=== PATIENT | male | born 1960 | race Caucasian/White ===

== ENCOUNTER 2022-05-10 18:30 | Emergency (ER) | payer BC, MEDICAID ==
[~2022-05-10] VITALS: Ht 175.3 cm; Wt 83.6 kg
[~2022-05-10 18:30] MED LIST: GLIP5TAB13 PO; OMEP20CA4 PO; SITA100T15 PO
[2022-05-10] MEDS ORDERED: morphine 4 MG/ML inj SYRINge IM ONE ×2 (19:05→22:55)
[2022-05-10] MEDS ORDERED: TETanus/Pertussis (Acell)/Diphther VAC/PF (Tdap-Adult) 0.5ml syringe IMVAC ONE (19:05)
[2022-05-10] MEDS ORDERED: LIDOcaine 1% W/epiNEPHrine 1:100,000 20ml vial SQ ONE (21:15)
[2022-05-10] MEDS ORDERED: LIDOcaine 1% w/EPI 1:100,000 30ml vial (MDV) SQ ONE (21:20)
[2022-05-10] MEDS ORDERED: HYDR-3972 PO (22:30)
[2022-05-10] MEDS ORDERED: HYDROcodone/acetaminophen 10/325mg tab PO ONE (22:55)
[2022-05-10 23:30] VITALS: BP 125/78
== END 2022-05-10 23:33 | disposition home or self-care (01) ==
LOC: ER 18:30
DX: S81.811A Laceration without foreign body, right lower leg, initial encounter (principal); S60.512A Abrasion of left hand, initial encounter; S60.511A Abrasion of right hand, initial encounter; E11.9 Type 2 diabetes mellitus without complications; Z87.81 Personal history of (healed) traumatic fracture; Z88.0 Allergy status to penicillin; Z79.899 Other long term (current) drug therapy; Z79.1 Long term (current) use of non-steroidal anti-inflammatories (NSAID); V49.9XXA Car occupant (driver) (passenger) injured in unspecified traffic accident, initial encounter; Y93.89 Activity, other specified; Y92.89 Other specified places as the place of occurrence of the external cause; Y99.8 Other external cause status
CPT/HCPCS: 12002; 73590; 73610; 73630; 96372; 99284; J2270; A6258; A6446; A6449

== ENCOUNTER 2025-04-23 11:38 | Inpatient (IN) | payer OTHER, MEDICAID ==
[~2025-04-23] VITALS: Ht 175.3 cm; Wt 77.5 kg
[~2025-04-23 11:38] MED LIST changes: -GLIP5TAB13 PO; +GLIP5TAB23 PO
[2025-04-23 13:02] LABS: MEAN PLATELET VOLUME 8.3 FL (7.4-10.4); RED CELL DISTRIBUTION WIDTH 15.8 % (11.5-14.5)
[2025-04-23 13:18] LABS: CREATININE 0.67 MG/DL (0.60-1.10); TOTAL CARBON DIOXIDE 28.6 MMOL/L (24-32); eCRCL 110 ML/MIN; eGFR > 90 ML/MIN
[2025-04-23 13:35] LABS: EOSINOPHILS % (MANUAL) 1.0 % (0-6); LYMPHOCYTES % (MANUAL) 2.0 % (21-51); NEUTROPHILS % (MANUAL) 78.0 % (42-75)
[2025-04-23 13:36] LABS: MONOCYTES % (MANUAL) 19.0 % (2-12); PLATELET ESTIMATE NORMAL
[2025-04-23] MEDS ORDERED: LOSA25TA41 PO (14:02)
[2025-04-23] MEDS ORDERED: SEMA0.258 (14:02)
[2025-04-23] MEDS ORDERED: PANT40TA54 PO (14:02)
[2025-04-23] MEDS ORDERED: BUPR-72 PO (14:02)
--- NOTE | 2025-04-23 14:54 | Physician Documentation ---
History of Present Illness ~ General Chief Complaint: Abnormal Lab(s) Stated Complaint: ABNORMAL LABS LIVER FAILURE Time Seen by MD: 14:28 Primary Medical Doctor: [facility] Mode of Arrival: POV History of Present Illness Initial Comments Is a 64-year-old male that presents to the emergency department for evaluation of abnormal labs that were performed at his doctor's office. Patient reports that in addition to abnormal labs he has experienced increased abdominal d istention upper right quadrant abdominal pain for the last several months. Patient denies any history of alcohol use, does report that he has a chronic methamphetamine user but is currently in rehabilitation and has been clean of methamphetamine for approximately 2 months. Reports that he has never used prescription drugs or any other illicit drugs but does currently use marijuana on occasion. Patient reports history of diabetes but reports that diabetes or currently controlled A1c was then within normal limits. Medication Reconciliation Allergies: Coded Allergies: Penicillins (Verified Allergy, Intermediate, RASH, 04/25/25) Scheduled Bupropion HCl (Bupropion HCl Sr), 1 TAB PO BID, (Reported) Glipizide (Glipizide), 1 TABLET PO BID, (Reported) Losartan Potassium (Losartan Potassium), 1 TAB PO DAILY, (Reported) Omeprazole (Prilosec), 1 CAP PO DAILY, (Reported) Pantoprazole Sodium (Pantoprazole Sodium), 1 TAB PO DAILY, (Reported) Sitagliptin Phosphate* (Januvia*), 1 TAB PO DAILY, (Reported) Miscellaneous Medications Semaglutide (Ozempic), (Reported) Unable to Obtain Medications (Unable to Obtain Medications), (Reported) Past Medical History Past Medical History: Diabetes, Extremity Fracture Past Surgical History: cancer surgery, other Alcohol Use: None Drug Use: none Lives In: Home Review of Systems ROS As stated above in the HPI, otherwise all systems are reviewed and negative. Physical Exam Physical Exam Vital Signs: Temperature: 98.5, Source: Oral, Heart Rate: 91, Respiratory Rate: 17, BP: 146/86, Pulse Oximetry: 96, Weight: 77.800 Oxygen Flow Rate: 0 Physical Exam VITALS: Reviewed and as above. GENERAL: Alert, no apparent distress but patient is tearful and reports that he has concerned about his health. HEENT: Normocephalic, atraumatic, PERRL, EOMI, dry mucosa, no erythema RESPIRATORY: Lungs clear, normal breath sounds, no respiratory distress. CHEST: No accessory muscle use, no retractions CV: Regular rate, rhythm, no edema, no murmur, No: JVD GI: Distended and firm in the upper right and left quadrants of the abdomen softer as you move into the lower quadrants, mild tenderness with palpation, abdominal distention noted, bowels sounds present, no rebound, guarding, or rigidity BACK: No CVA tenderness, or swelling MUSCULOSKELETAL No deformities, no edema SKIN: Warm and dry, no rash NEURO: Oriented x4, No motor or sensory deficit PSYCH: Normal mood and affect, no agitation Progress Results/Orders Results/Orders Orders - ZAKIA MERRITT [employer] OPERATOR Ultrasound Of Abdomen (04/23/25 14:40) Page Hospitalist (04/23/25 16:51) Completed Orders - ZAKIA MERRITT [employer] OPERATOR Ultrasound Of Abdomen (04/23/25 14:40) Vital Signs 04/23/25 04/23/25 04/23/25 04/23/25 12:10 13:54 14:04 15:03 Temp 98.5 Pulse 98 91 96 Resp 18 17 17 B/P (MAP) 159/85 146/86 (106) 130/79 (96) Pulse Ox 97 96 95 O2 Flow Rate 0 0 04/23/25 16:11 Pulse 93 Resp 20 B/P (MAP) 145/80 (101) Pulse Ox 94 O2 Flow Rate 0 Laboratory Tests Test 04/23/25 12:46 04/23/25 15:24 White Blood Count 10.5 Red Blood Count 3.94 L Hemoglobin 13.2 L Hematocrit 38.8 L Mean Corpuscular Volume 98.5 H Mean Corpuscular Hemoglobin 33.4 H Mean Corpuscular Hemoglobin Concent 33.9 Red Cell Distribution Width 15.8 H Platelet Count 158 Mean Platelet Volume 8.3 Neutrophils (%) (Auto) 74.2 Lymphocytes (%) (Auto) 4.8 L Monocytes (%) (Auto) 20.0 H Eosinophils (%) (Auto) 0.5 Basophils (%) (Auto) 0.5 Neutrophils # (Auto) 7.8 H Lymphocytes # (Auto) 0.5 L Monocytes # (Auto) 2.1 H Eosinophils # (Auto) 0.0 Basophils # (Auto) 0.0 CBC Comment Differential Total Cells Counted 100 Neutrophils % (Manual) 78.0 H Lymphocytes % (Manual) 2.0 L Monocytes % (Manual) 19.0 H Eosinophils % (Manual) 1.0 Platelet Estimate Normal Red Blood Cell Morphology Normal Basophilic Stippling Sodium Level 135 Potassium Level 3.9 Chloride Level 100 Carbon Dioxide Level 28.6 Anion Gap 6 L Blood Urea Nitrogen 14 Creatinine 0.67 Estimated GFR/1.73 m2 > 90 BUN/Creatinine Ratio 20.9 H Glucose Level 99 Calcium Level 9.2 Total Bilirubin 6.3 H Aspartate Amino Transf (AST/SGOT) 307 H Alanine Aminotransferase (ALT/SGPT) 86 H Alkaline Phosphatase 487 H Total Protein 6.3 L Albumin 2.4 L Globulin 3.9 Albumin/Globulin Ratio 0.6 L Amylase Level 26 Lipase 12 L Chemistry Comments Urine Specimen Description Urinal Urine Color [place] Urine Clarity Clear Urine pH 7.0 Urine Specific [place] 1.020 Urine Protein 30 H Urine Glucose (UA) 100 H Urine Ketones Trace H Urine Occult Blood Negative Urine Nitrite Negative Urine Bilirubin Moderate Urine Urobilinogen >=8.0 H Urine Leukocyte Esterase Negative Urine RBC None seen Urine WBC 0-4 Urine Squamous Epithelial Cells Few Urine Transitional Epithelial Cells Few Urine Bacteria None seen Urine Mucus Few Urine Culture Indicated Not ind Volume Urine Centrifuged 10 ml Urine Comment Urine Opiates Screen Negative Urine Methadone Screen Negative Urine Fentanyl Screen Negative Urine Barbiturates Screen Negative Urine Phencyclidine Screen Negative Urine Amphetamines Screen Negative Urine Benzodiazepines Screen Negative Urine Cocaine Screen Negative Urine Cannabinoids Screen Positive Drug Screen Comment Medical Decision Making Findings 64 y/o patient with RUQ abdominal pain, consistent with hepatic cioncerns. Abdominal exam without peritoneal signs. No evidence of acute abdomen at this time. Well appearing. Given RUQ imaging, patient has an obstruction of the portal vein in addition to a substantially enlarged liver.Hospitalist consulted and patient to be admitted. Less likely to represent acute pancreatitis (neg lipase), PUD (including gastric perforation), acute infectious processes (pneumonia, hepatitis, pyelonephritis), atypical appendicitis, vascular catastrophe, bowel obstruction or viscus perforation, or acute coronary syndrome. Presentation not consistent with other acute, emergent causes of abdominal pain at this time. Patient has been handed off to the hospitalist for admission. Departure Disposition: 09 ADMITTED INPATIENT Admission Level of Care: Med/Surg Impression: Primary Impression: Hepatomegaly Additional Impressions: Portal vein obstruction Ascites Pain Abnormal laboratory test result Cirrhosis of liver Condition: Stable Referrals: NO PRIMARY CARE PROVIDER (PCP) Education Educated: Patient Educated regarding: diagnosis, prognosis Signature Scribe Signature: A Attestation: Scribed for Zakia Merritt by WHIT Jeter . 04/25/25 20:01 ZAKIA MERRITT Apr 23, 2025 14:54
[2025-04-23 15:46] LABS: LEUKOCYTE ESTERASE ,URINE NEGATIVE (Neg); NITRITES, URINE NEGATIVE (Neg); OCCULT BLOOD,URINE NEGATIVE (Neg)
[2025-04-23 15:53] LABS: UA COLLECTION TYPE URINAL
[2025-04-23 15:55] LABS: SQUAMOUS EPITHELIAL CELL,UR FEW /LPF (FEW)
[2025-04-23 15:56] LABS: MUCUS STRANDS FEW /LPF (Neg)
--- NOTE | 2025-04-23 17:13 | RADIOLOGY REPORT ---
Procedure: US ULTRASOUND OF [facility] Study Date and Requested Time: 04/23/2025 03:45 PM History: abnormal labs, pain Comparison: None Technique: Multiple high resolution lang-scale images obtained of the right upper quadrant of the abdomen with color Doppler for evaluation of blood flow and vascularity as indicated. Findings: Liver measures 19 cm in length, with heterogeneous echotexture and micronodular contour. No evidence of focal hepatic lesions, intrahepatic or extrahepatic ductal dilatation. Common bile duct measures 0.4 cm in diameter. Unable to detect portal venous flow. Nonspecific gallbladder wall thickening and 0.9 cm. Otherwise, Gallbladder unremarkable with no evidence of gallstones, biliary sludge, or pericholecystic fluid. Sonographic lopez's sign not documented. Pancreas is obscured by bowel gas Right kidney measures 12.9 cm in length, with normal contours, echotexture, and cortical thickness. No evidence of hydronephrosis, calculi, cystic or solid renal lesions. Partially visualized inferior vena cava unremarkable. Small to moderate perihepatic free fluid. Impression: Cirrhotic appearing liver with small to moderate perihepatic free fluid Flow was not detected within the portal vein. Correlate for Possible portal vein thrombosis. Nonspecific Significant wall thickening of the Gallbladder which may be from the hepatic disease with primary gallbladder pathology not completely excluded. The gallbladder is otherwise unremarkable.
[2025-04-23] MEDS ORDERED: magnesium sulf-water 2g/50mL 50 ML IV PRN (17:40)
[2025-04-23] MEDS ORDERED: ondansetron/PF 4mg/2ml inj IV PRN (17:40)
[2025-04-23] MEDS ORDERED: magnesium hydroxide 30ml (MOM) UD suspension PO PRN (17:40)
[2025-04-23] MEDS ORDERED: potassium Cl 40MEQ/1/2NS 520ml 520 ML IV PRN (17:40)
[2025-04-23] MEDS ORDERED: potassium Cl 20 mEq SR tablet PO PRN ×2 (17:40)
[2025-04-23] MEDS ORDERED: metoclopramide 5 mg/ml inj IV PRN (17:40)
[2025-04-23] MEDS ORDERED: magnesium Cl slow-release 64mg tablet PO PRN (17:40)
[2025-04-23] MEDS ORDERED: magnesium sulf-water 4G/100mL 100 ML IV PRN (17:40)
[2025-04-23] MEDS ORDERED: mag hydrox/Alum hydrox/simeth 30ml oral suspension PO PRN (17:40)
[2025-04-23] MEDS ORDERED: dextrose 50%-water 50ml dispensing syringe IV PRN ×2 (17:55)
[2025-04-23] MEDS ORDERED: glucagon, human recombinant 1mg kit SUBCUT PRN (17:55)
[2025-04-23] MEDS ORDERED: DEXTROSE 15 GM of carb/4 tabs (each vial/BOTTLE has 4 tablets) PO PRN ×2 (17:55)
[2025-04-23] MEDS ORDERED: iohexol 300mg/ml 100ml inj. ONE (18:07)
--- NOTE | 2025-04-23 18:10 | HISTORY AND PHYSICAL-Residence ---
History & Physical Providers to CC Resident Creating Document: LAQUITAPREMPLACIDO ~ History of Present Illness Primary Medical Doctor: [facility] Reason for Admit\Complaint: Portal vein thrombosis History of Present Illness This is a 64-year-old male patient with a past medical history of hepatitis-C treated, cirrhosis, hypertension, type 2 diabetes mellitus, presented to the ER for painless jaundice for the last 3-4 days. Patient complains of abdominal distention, nausea, fullness and decreased oral intake for the last week associated with progressive jaundice, dark urine and loose stools. He denies abdominal pain, vomiting or altered mental status. Patient also complains of dry cough and intermittent left-sided chest pain with deep inspiration. No other symptoms reported. Allergies: Coded Allergies: Penicillins (Verified Allergy, Unknown, 04/23/25) Home Medications Home Medications Active Reported Ozempic (Semaglutide) 0.25 Mg/0.368 Ml Pen.injctr Losartan Potassium 25 Mg Tablet 1 Tab PO DAILY Prilosec (Omeprazole) 20 Mg Capsule.dr 1 Cap PO DAILY Glipizide 5 Mg Tablet 1 Tablet PO BID Januvia* (Sitagliptin Phosphate*) 100 Mg Tablet 1 Tab PO DAILY Past Medical History Past Medical History Hypertension Diabetes mellitus type 2 Hep C treated 15 years ago Past Surgical History Surgical History Comment Benign intracranial tumor removed 10 years ago Past Social History Smoking: Less than 1 pack/day (Patient smokes half pack daily) Alcohol Use: None Drug Use: None, Methamphetamine (Patient's sober for the last two months) Lives with: Other Lives In: Home ROS Constitutional: Reports: malaise, weakness Eyes: Reports: no symptoms reported ENT: Reports: no symptoms reported Respiratory: Reports: no symptoms reported Cardiovascular: Reports: chest pain Gastrointestinal: Reports: abdomen distended, nausea, poor appetite Genitourinary: Reports: no symptoms reported Male Genitalia: Reports: no symptoms reported Neurological: Reports: no symptoms reported Musculoskeletal: Reports: no symptoms reported Integumentary: Reports: no symptoms reported Allergic/Immunologic: Reports: no symptoms reported Hematologic/Lymphatic: Reports: no symptoms reported Endocrine: Reports: no symptoms reported Psychiatric: Reports: no symptoms reported Exam Vitals: Vital Signs Date Time Temp Pulse Resp B/P (MAP) Pulse Ox O2 Delivery O2 Flow Rate FiO2 04/23/25 17:47 95 18 143/82 (102) 100 0 04/23/25 12:10 98.5 General: General: Awake and Alert, no acute distress. HEENT: Conjunctiva pink, jaundice 2+/4+, Mucus Membranes moist. Neck: Supple without masses and tenderness. Resp: Unlabored. Lungs clear to auscultation bilaterally. Heart: Regular Rate and rhythm, normal S1 and S2 without murmur, rub or gallop. Abdomen: Mildly distended, normal bowel sounds, nontender, no guarding or rebound, liver palpable 2 cm below the right costal margin Extremities: No cyanosis,clubbing or edema. Skin: Warm and Dry. Diagnostic Data Last Recorded Lab Results: 04/23/25 1246 04/23/25 1246 Advance Care Planning Advanced Care plannin - 30 Minutes (Patient wants to be full code) Additional Plan Assessment 64-year-old male patient admitted for painless jaundice. 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 Flow was not detected within the portal vein. Correlate for Possible portal vein thrombosis. Common bile duct measures 0.4 cm in diameter. Nonspecific gallbladder wall thickening and 0.[address] abdomen with IV contrast Plan to start enoxaparin therapeutic dose after CT abdomen Ordered INR, hepatitis panel, alpha fetoprotein IV hydration with lactated ringer Ordered ESR, procalcitonin, VitB12, iron profile and occult blood Methamphetamine use disorder Patient has been sober for the last 2 months, currently living at [facility] Ordered drug screen Type 2 diabetes mellitus Ordered A1c Placed on hyper/hypoglycemia protocol Hypertension - well-controlled Continue home medication after med reconciliation Code Status: Full code DVT prophylaxis: Enoxaparin after CT abdomen Analgesia/sedation: Morphine Line/tube: PIV GI prophylaxis: Pantoprazole Nutrition: Regular diet Prognosis: Guarded Disposition: Admit to surgical floor. Start anticoagulation after CT abdomen. Date of Service: Apr 23, 2025 Billing Provider: ISIDRO EARL MD, LUCAS, RES Apr 23, 2025 18:10
[2025-04-23] MEDS: ringers solution, lacted 1,000 ML IV SCH (18:11)
--- NOTE | 2025-04-23 18:39 | RADIOLOGY REPORT ---
CHEST RADIOGRAPH Indication: Intermittent chest pain Technique: DI CHEST,TWO VIEWS COMPARISON: None FINDINGS: The cardiac silhouette is enlarged. The lungs demonstrate bilateral patchy airspace opacities. The pulmonary vasculature is prominent. Small bilateral pleural effusions. There is no pneumothorax. IMPRESSION: Cardiomegaly with pulmonary vascular congestion and bilateral patchy airspace opacities. Small bilateral pleural effusions
--- NOTE | 2025-04-23 18:45 | RADIOLOGY REPORT ---
Exam: CT CT ABDOMEN W/ IV CONTRAST History: EVALUATION OF PORTAL VEIN THROMBOSIS, NEED IV CONTRAST Comparison Study: US ULTRASOUND OF ABDOMEN on DOS: 04/23/25 TECHNIQUE: A digital tradeshow worker image was obtained. During the uneventful, intravenous administration of contrast material, multislice data acquisition was obtained through the abdomen and pelvis. The data set was subsequently reconstructed into axial images. Images reviewed on a wrist examination is an examination of axial and multiplanar reformations using a variety of window levels and settings. RADIATION DOSE: DLP 625.06 mGy.cm; CTDI vol 19.81 mGy. Findings: Lungs: Small bilateral pleural effusions, [id number]. Mild bilateral lower lobe atelectasis. Heart: No cardiomegaly or pericardial effusion. Liver: Cirrhotic liver morphology with perihepatic free fluid. Biliary ductal dilatation with complete portal venous thrombus (axial image 36). Gallbladder: Gallbladder wall thickening likely due to hepatic disease. Spleen: Unremarkable. Mild perisplenic free fluid. Pancreas: Unremarkable Adrenals: Unremarkable Kidneys: Unremarkable GI tract: Visualized portions are unremarkable Vasculature: Mild aortoiliac atherosclerosis. Gastrosplenic varices. Lymphadenopathy: Mildly prominent retroperitoneal and portal caval nodes. Peritoneum: Mild volume ascites. Musculoskeletal: Mild multilevel degenerative changes of the thoracolumbar spine. Soft tissues: Small fat containing periumbilical hernia. Mild anasarca Impression: 1. Cirrhotic liver morphology with biliary ductal dilatation and complete portal vein thrombosis, as seen on same-day abdominal ultrasound. 2. Sequela of portal hypertension. 3. Small bilateral pleural effusions. 4. Mildly prominent retroperitoneal and portal caval nodes, nonspecific but favored reactive.
[2025-04-23 19:13] LABS: INR 1.4 INR
[2025-04-23 19:38] LABS: HIV ANTIBODY 1&2 RAPID NON-REACTIVE (Neg)
[2025-04-23] MEDS: enoxaparin 80mg/0.8ml syringe SUBCUT SCH (20:00)
[2025-04-23] MEDS: docusate sod 100mg capsule PO SCH (20:00)
[2025-04-23] MEDS: K and/or MAG REPLACEMENT MC SCH (20:00)
[2025-04-23 20:23] LABS: URINE AMPHETAMINE SCREEN NEGATIVE (Neg); URINE BARBITUATE SCREEN NEGATIVE (Neg); URINE BENZODIAZEPINES SCREEN NEGATIVE (Neg); URINE CANNABINOID SCREEN POSITIVE (Neg); URINE COCAINE SCREEN NEGATIVE (Neg); URINE METHADONE SCREEN NEGATIVE (Neg); URINE OPIATE SCREEN NEGATIVE (Neg); URINE PHENCYCLIDINE SCREEN NEGATIVE (Neg)
[2025-04-23] MEDS: INSULIN LISPRO 100 UNIT/ML INSULN.PEN MULTI-DOSE SQ SCH (21:00)
[2025-04-23] MEDS: diazepam inj 5 MG/ML inj. IV PRN (21:55)
[2025-04-23 22:50] VITALS: BP 153/83; PULSE 107; RESP 16; TEMP 98.5; O2SAT 92
[2025-04-23 23:00] VITALS: RESP 16; O2SAT 92
[2025-04-24] MEDS ORDERED: morphine 4 MG/ML inj SYRINge IV PRN (00:10)
[2025-04-24] MEDS ORDERED: diazepam inj 5 MG/ML inj. IV ONE (02:00)
[2025-04-24 04:39] LABS: MEAN PLATELET VOLUME 8.0 FL (7.4-10.4); RED CELL DISTRIBUTION WIDTH 15.6 % (11.5-14.5)
[2025-04-24] MEDS: morphine 4 MG/ML inj SYRINge IV PRN (04:43)
[2025-04-24 04:56] LABS: % IRON SATURATION 22 % (11-46)
[2025-04-24 05:29] LABS: CREATININE 0.65 MG/DL (0.60-1.10); TOTAL CARBON DIOXIDE 27.7 MMOL/L (24-32); eCRCL 113 ML/MIN; eGFR > 90 ML/MIN
[2025-04-24 06:14] VITALS: BP 127/64; PULSE 102; RESP 20; TEMP 99.6; O2SAT 92
[2025-04-24] MEDS: HYDROmorphone inj. 0.5 MG/0.5 ML DISP.SYRIN IV PRN (07:32)
[2025-04-24 07:45] LABS: LYMPHOCYTES % (MANUAL) 4.0 % (21-51); MONOCYTES % (MANUAL) 16.0 % (2-12); NEUTROPHILS % (MANUAL) 80.0 % (42-75); PLATELET ESTIMATE NORMAL
[2025-04-24] MEDS ORDERED: enoxaparin 40mg/0.4ml syringe SUBCUT SCH (08:00)
[2025-04-24 08:50] VITALS: BP 141/78; PULSE 110; RESP 24; TEMP 98.8; O2SAT 92
[2025-04-24] MEDS: HYDROcodone/acetaminophen 5mg/325mg tablet PO PRN (10:52)
[2025-04-24] MEDS: pantoprazole 40mg Tablet.DR PO SCH (10:52)
--- NOTE | 2025-04-24 11:23 | PROGRESS NOTE- Residence ---
Progress Note - Resident Providers to CC Resident Creating Document: PREM COELHO RES ~ Antibiotic Timeout Antibiotic Ordered?: No Subjective Patient was seen and examined at the bedside. He complains of abdominal pain especially in the right upper quadrant, but denies nausea, vomiting, diarrhea or shortness for breath. Patient is tolerating oral diet. No other symptoms reported. Objective Vital Signs Date Time Temp Pulse Resp B/P (MAP) Pulse Ox O2 Delivery O2 Flow Rate FiO2 04/24/25 10:52 24 04/24/25 08:50 98.8 110 141/78 (99) 92 Nasal Cannula 2.0 Result Diagram: 04/24/2542604/24/25426 General: Awake and Alert, no acute distress. HEENT: Conjunctiva pink, jaundice 2+/4+, Mucus Membranes moist. Neck: Supple without masses and tenderness. Resp: Unlabored. Lungs clear to auscultation bilaterally. Heart: Regular Rate and rhythm, normal S1 and S2 without murmur, rub or gallop. Abdomen: distended, normal bowel sounds, mildly tender, no guarding or rebound, liver palpable 2 cm below the right costal margin Extremities: No cyanosis,clubbing or edema. Skin: Warm and Dry. Coagulation Studies Laboratory Tests Test 04/23/25 18:10 Prothrombin Time 14.0 SECONDS (9.0-12.0) H INR International Normalized Ratio 1.4 INR Coagulation Comments Plan Plan Assessment 64-year-old male patient admitted for painless jaundice. 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 Flow was not detected within the portal vein. Correlate for Possible portal vein thrombosis. Common bile duct measures 0.4 cm in diameter. Nonspecific gallbladder wall thickening and 0.[address] abdomen with IV contrast Plan to start enoxaparin therapeutic dose after CT abdomen Ordered INR, hepatitis panel, alpha fetoprotein IV hydration with lactated ringer Ordered ESR, procalcitonin, VitB12, iron profile and occult blood 04/24/2025 Ammonia < 10, ASL 268, ALT 75, alkaline phosphatase 444, bilirrubin 7.3, direct bilirrubin 4.8 Ferritin 2650, Iron 36, TIBC 162 HIV negative, pending hepatitis panel Pending alpha-fetoprotein and GGT Started on enoxaparin 1 mg/kg b.i.d. Started on Dilaudid 0.5mg for pain management Ordered therapeutic paracentesis CT abdomen: 1. Cirrhotic liver morphology with biliary ductal dilatation and complete portal vein thrombosis, as seen on same-day abdominal ultrasound. 2. Sequela of portal hypertension. 3. Small bilateral pleural effusions. 4. Mildly prominent retroperitoneal and portal caval nodes, nonspecific but favored reactive. Patient needs to be transferred for higher level of care Methamphetamine use disorder Patient has been sober for the last 2 months, currently living at [facility] UA screen neg for meth, positive for cannabinoids Type 2 diabetes mellitus A1c 7.5 Placed on hyper/hypoglycemia protocol Not started on insulin given poor oral intake Hypertension - well-controlled Continue losartan 25 mg daily Code Status: Full code DVT prophylaxis: Enoxaparin Analgesia/sedation: Morphine/Dilaudid Line/tube: PIV GI prophylaxis: Pantoprazole Nutrition: Carb controlled diet Prognosis: Guarded Disposition: Continue medical treatment. Patient needs to be transferred for higher level of care. Resident MD attestation The above note has been reviewed and supervised by a senior resident PGY2/PGY3 Patient was seen, examined and discussed with the attending physician Date of Service: Apr 24, 2025 Billing Provider: ISIDRO EARL MD, LUCAS, RES Apr 24, 2025 11:23
[2025-04-24 11:30] VITALS: BP 126/84; PULSE 103; RESP 19; TEMP 98.6; O2SAT 90
[2025-04-24 18:00] VITALS: BP 144/73; PULSE 105; RESP 24; TEMP 98.9; O2SAT 90
[2025-04-24 19:35] LABS: INR 1.8 INR
[2025-04-24 20:00] VITALS: RESP 24; O2SAT 90
[2025-04-24] MEDS: buPROPion SR 150mg tablet PO SCH (21:31)
[2025-04-24] MEDS: morphine ER 15mg tablet PO SCH (21:34)
[2025-04-24 22:00] VITALS: BP 129/73; PULSE 108; RESP 24; TEMP 99.3; O2SAT 90
[2025-04-25] VITALS (27 sets, daily range): BP systolic 18–148; BP diastolic 46–82; PULSE 14–115; RESP 8–28; TEMP 98–99; O2SAT 86–98
[2025-04-25 05:00] LABS: MEAN PLATELET VOLUME 7.8 FL (7.4-10.4); RED CELL DISTRIBUTION WIDTH 15.5 % (11.5-14.5)
[2025-04-25 05:12] LABS: CREATININE 1.69 MG/DL (0.60-1.10); TOTAL CARBON DIOXIDE 25.2 MMOL/L (24-32); eCRCL 44 ML/MIN; eGFR 41 ML/MIN
[2025-04-25] MEDS: normal saline 1000ml 1,000 ML IV SCH (06:40)
[2025-04-25 07:54] LABS: LYMPHOCYTES % (MANUAL) 2.0 % (21-51); MONOCYTES % (MANUAL) 16.0 % (2-12); NEUTROPHILS % (MANUAL) 82.0 % (42-75); PLATELET ESTIMATE NORMAL
[2025-04-25] MEDS ORDERED: piperacillin/tazo 4.5gm/100ml 100 ML IV SCH (08:00)
[2025-04-25] MEDS: normal saline 1000ml 1,000 ML IVB ONE (08:05)
[2025-04-25] MEDS: levoFLOXACIN-Levaquin 750MG/D5 150 ML IV SCH (10:25)
[2025-04-25] MEDS: LidoCAINE 2% Topical Jelly 11mL syringe (UROJET) TOP ONE (10:25)
[2025-04-25] MEDS: metroNIDAZOLE-Flagyl 750mg/NS 150 ML IV SCH (11:12)
[2025-04-25 11:31] LABS: AFP,SERUM, TUMOR MARKER 98307.0 ng/mL (0.0-8.4); HEP B CORE AB, TOT Positive (Negative); HEPATITIS C VIRUS ANTIBODY Reactive (Non Reactive)
--- NOTE | 2025-04-25 12:02 | RADIOLOGY REPORT ---
Indication: Worsening abdominal pain, elevated WBC, elevated lactic acid Technique: CT axial images of the abdomen and pelvis are obtained without contrast. Coronal and sagittal reformats were obtained. Radiation Dose Information: CTDI volume is 33.2 mGy. Dose-length product is 1765 mGy*cm Comparison: 04/23/2025 FINDINGS: There is limited interpretation of the abdomen and pelvis without administration of intravenous contrast. Moderate bilateral pleural effusions. Bibasilar pulmonary consolidation, atelectasis. Adrenal glands, pancreas unremarkable in shape. Splenomegaly.. Cirrhotic morphology liver. Heterogeneous appearance of the liver. Gallbladder hyperdensity. Numerous perisplenic, perigastric varices. Gastro renal shunt. Demonstrate no hydronephrosis. Contrast from a previous examination within the renal cortices. Stomach is partially distended. Small bowel loops are normal in caliber. Colonic diverticular disease. Moderate volume stool in the colon. Normal appendix. Abdominal aortic atherosclerotic disease.m Portacaval lymph node measuring 2.5 cm. Retroperitoneal lymph node measuring 2.0 cm. Bladder distended with contrast from prior examination. Small amount of ascites fluid. Mesenteric edema. Old left inferior pubic ramus fracture. [id number] bilateral sacroiliac degenerative joint disease. Moderate thoracolumbar degenerative disc disease. This is most pronounced at L5-S1. IMPRESSION: Limited evaluation without contrast. Cirrhotic morphology liver with sequela of portal hypertension including splenomegaly, gastric / splenic varices, gastro renal shunt. Diffusely heterogeneous appearance of the liver. Recommend multiphasic MRI abdomen correlation with alpha fetoprotein levels exclude any type of underlying neoplastic process. Portacaval, retroperitoneal lymphadenopathy which could be secondary to inflammatory, infectious, lymphoma neoplastic etiology. Bibasilar pulmonary consolidation/atelectasis. Moderate bilateral pleural effusions. Soft tissue edema and anasarca. Gallbladder hyperdensity which may represent vicarious excretion contrast from the previous examination. Small amount of ascites fluid. Colonic diverticular disease. Other findings as described.
[2025-04-25 12:37] LABS: ABG BASE EXCESS -5.2 mmol/L (-2.0-3.0); ABG HCO3 20.3 mmol/L (21.0-28.0); ABG OXYGEN SATURATION 94.1 % (94.0-98.0); ABG PCO2 (T) 39.5 mmHg (35.0-48.0); ABG PH (T) 7.329 (7.350-7.450); ABG PO2 (T) 78.7 mmHg (83.0-108.0); ALLEN'S TEST POSITIVE; FCOHb 1.3 % (0.5-1.5); FHHb 5.8 % (0.0-5.0); FIO2 100.0 mmHg/%; FLOW 15 L/min; FMetHb 0.0 % (0.0-1.5); FO2Hb 92.9 % (94.0-98.0); MODE MASK - NRB; PATIENT TEMPERATURE 37.1; TOTAL HEMOGLOBIN 12.9 G/dl (13.5-17.5)
--- NOTE | 2025-04-25 13:00 | RADIOLOGY REPORT ---
EXAM: DI CHEST,SINGLE VIEW HISTORY: resp distress COMPARISON: Chest x-ray dated 04/23/2025, upper images of CT scan of the abdomen dated 04/25/2025. TECHNIQUE: Portable upright AP view of the chest was performed. FINDINGS: There is near-complete opacification of the left hemithorax with a small amount of the left upper lobe remaining aerated. There is increased consolidative infiltrate in the right lung base. No pneumothorax. The heart is borderline enlarged. The central pulmonary arteries may be ectatic IMPRESSION: 1. Extensive consolidation and effusion in the left hemithorax with near- complete whiteout. This is increased compared with recent chest imaging. 2. Right lung base consolidation and effusion, increased.
--- NOTE | 2025-04-25 14:23 | PROGRESS NOTE- Residence ---
Progress Note - Resident Providers to CC Resident Creating Document: PREM COELHO RES ~ Antibiotic Timeout Antibiotic Ordered?: Yes Subjective Patient was seen and examined at the bedside. Patient today was confused, in respiratory distress, coughing, not tolerating oral diet, complaining of a progressive abdominal pain. At night he was agitated and received IV diazepam. He was transferred in the morning to PCU and had to be transferred again to CICU due to respiratory distress. Objective Vital Signs Date Time Temp Pulse Resp B/P (MAP) Pulse Ox O2 Delivery O2 Flow Rate FiO2 04/25/25 13:00 108 18 93 40.0 100 04/25/25 12:30 Nasal Cannula 04/25/25 12:15 99.0 04/25/25 10:00 124/64 (84) Result Diagram: 04/25/2543604/25/25436 General: Somnolent, clearly in pain, in respiratory distress. HEENT: Conjunctiva pink, jaundice 2+/4+, Mucus Membranes dry Neck: Supple without masses and tenderness. Resp: Tachypnea. Decreased lung sounds in the left lungs with diffuse crackles. Heart: Tachycardic, Regular Rate and rhythm, normal S1 and S2 without murmur, rub or gallop. Abdomen: distended, normal bowel sounds, tender to palpation, no guarding or rebound, liver palpable 2 cm below the right costal margin Extremities: No cyanosis,clubbing or edema. Skin: Warm and Dry. Coagulation Studies Laboratory Tests Test 04/24/25 18:50 Prothrombin Time 17.7 SECONDS (9.0-12.0) H INR International Normalized Ratio 1.8 INR Coagulation Comments Plan Plan Assessment 64-year-old male patient initially admitted for painless jaundice, found to have portal vein thrombosis and treated with enoxaparin. During hospitalization the patient developed confusion, cough and respiratory distress, chest x-ray showed extensive left side effusion. 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 Possible associated hepatitis-B. Portacaval, retroperitoneal lymphadenopathy - possible inflammatory/neoplasm Patient presents with jaundice for the last four days Complains of abdominal distention, decreased oral intake, fullness and nausea for the last week Denies abdominal pain or vomiting but signs of dehydration History of chronic hepatitis-C, treated 15 years ago Total bilirubin 6.3, AST 307, ALT 86, alkaline phosphatase 487 US abdomen: Cirrhotic appearing liver with small to moderate perihepatic free fluid. Flow was not detected within the portal vein. Correlate for Possible portal vein thrombosis. Common bile duct measures 0.4 cm in diameter. Nonspecific gallbladder wall thickening and 0.[address] abdomen with IV contrast Plan to start enoxaparin therapeutic dose after CT abdomen Ordered INR, hepatitis panel, alpha fetoprotein IV hydration with lactated ringer Ordered ESR, procalcitonin, VitB12, iron profile and occult blood 04/24/2025 Ammonia < 10, ASL 268, ALT 75, alkaline phosphatase 444, bilirrubin 7.3, direct bilirrubin 4.8 Ferritin 2650, Iron 36, TIBC 162 HIV negative, pending hepatitis panel Pending alpha-fetoprotein and GGT Started on enoxaparin 1 mg/kg b.i.d. Started on Dilaudid 0.5mg for pain management Ordered therapeutic paracentesis CT abdomen: 1. Cirrhotic liver morphology with biliary ductal dilatation and complete portal vein thrombosis, as seen on same-day abdominal ultrasound. 2. Sequela of portal hypertension. 3. Small bilateral pleural effusions. 4. Mildly prominent retroperitoneal and portal caval nodes, nonspecific but favored reactive. Patient needs to be transferred for higher level of care 04/25/2025 Patient worsening clinical status and increasing abdominal pain Lactic acid 4.6, WBC 20.5, ESR [address] shows: - Portacaval, retroperitoneal lymphadenopathy which could be secondary to inflammatory, infectious, lymphoma neoplastic etiology. - Bibasilar pulmonary consolidation/atelectasis. Moderate bilateral pleural effusions. - Soft tissue edema and anasarca. Patient was started on levofloxacin and metronidazole in the morning Patient received IV fluids given positive sepsis criteria Hepatitis-B total antibiotic is also positive, ordered surface antigen Alpha fetoprotein 51377 Sepsis secondary to pneumonia, most likely community-acquired Extensive left side pleural effusion No clinical signs of pneumonia at admission, patient denied productive cough, fever or shortness for breath At presentation WBC 10.5 and procalcitonin < 0.5. Clinical presentation did not indicate pneumonia but is unable to exclude given CXR below Intial CXR: Cardiomegaly with pulmonary vascular congestion and bilateral patchy airspace opacities. Small bilateral pleural effusions Labs today showed WBC 20.5, procalcitonin 13.83, lactic acid 4.6 Patient was in respiratory distress, requiring oxygen, coughing, tachycardic and tachypneic Repeat CXR: Extensive consolidation and effusion in the left hemithorax with near-complete whiteout. This is increased compared with recent chest imaging. Right lung base consolidation and effusion, increased. Plan Patient was transferred to ICU Ordered diagnostic/therapeutic thoracocentesis Patient is currently on levofloxacin Acute kidney injury, possibly due to vasomotor nephropathy At presentation Cr 0.67 and BUN 14 Today Cr 1.69 and BUN 41 Patient received 1000 mL bolus of NS and started on crystalloid 100 mL/hr Methamphetamine use disorder Patient has been sober for the last 2 months, currently living at [facility] UA screen neg for meth, positive for cannabinoids Moderate malnutrition Type 2 diabetes mellitus A1c 7.5 Albumin 2.4 Placed on hyper/hypoglycemia protocol Not started on insulin given poor oral intake Hypertension - well-controlled Hold losartan due to LUKE Code Status: Full code DVT prophylaxis: Enoxaparin Analgesia/sedation: Morphine/Dilaudid Line/tube: PIV GI prophylaxis: Pantoprazole Nutrition: Carb controlled diet Prognosis: Guarded Disposition: Continue medical treatment. Patient needs to be transferred for higher level of care. Resident MD attestation The above note has been reviewed and supervised by a senior resident PGY2/PGY3 Patient was seen, examined and discussed with the attending physician Date of Service: Apr 25, 2025 Billing Provider: SIMONA ROBINS MD Common Visit Codes: [id number] INP/OBS CARE(HIGH) PREM COELHO RES Apr 25, 2025 14:23 SIMONA ROBINS MD Apr 25, 2025 19:31
[2025-04-25 15:03] LABS: BFSOURCE PLEURAL FLD; PLEURAL FLUID PH 6.882 (7.63-7.65)
[2025-04-25 15:12] LABS: LDH,BODY FLUID 802 U/L
[2025-04-25] MEDS ORDERED: UNABLE TO OBTAIN (15:12)
[2025-04-25 15:27] LABS: TOTAL PROTEIN,BODY FLUID 3.1 G/DL
--- NOTE | 2025-04-25 15:28 | RADIOLOGY REPORT ---
CHEST RADIOGRAPH Indication: post chest thoracentesis Technique: Single frontal view of the chest was obtained COMPARISON: DI CHEST,SINGLE VIEW on DOS: 04/25/25, DI CHEST,TWO VIEWS on DOS: 04/23/25 FINDINGS: Lines and Tubes: None Lungs: Multifocal airspace disease. Pleura: No effusion. No pneumothorax. Cardiomediastinal contours: Unremarkable Bones: Unremarkable IMPRESSION: No appreciable pneumothorax.
[2025-04-25 15:29] LABS: GLUCOSE,BODY FLUID 0 MG/DL
[2025-04-25 15:43] LABS: BF WBC COUNT 21700 /CU MM (0-1000); BFAPPEAR CLOUDY; BFCOLOR YELLOW; BFSOURCE LEFT PLEURAL FLD; BFVOLUME 50 ML
[2025-04-25 15:44] LABS: BF RBC COUNT 300 /CU MM
--- NOTE | 2025-04-25 15:44 | RADIOLOGY REPORT ---
PROCEDURE: ULTRASOUND GUIDED THORACENTESIS USING TEMPORARY CATHETER HISTORY: 64 Male with requiring thoracentesis. DOCUMENTATION: Informed consent was obtained and a procedural time out was performed. TECHNIQUE: Ultrasound was used to locate the left pleural fluid collection with an image archived in the PACS. The skin over the left posterior hemithorax was sterilely prepped, draped, and infiltrated with 1% lidocaine. Under real time ultrasound guidance, the left pleural space was accessed with a 19-gauge Yueh needle and connected to Vacutainers. The Yueh catheter was advanced, the needle was removed and the temporary catheter was advanced and connected to the Vacutainer. Approximately 0.8 liters of serous fluid was removed. The temporary catheter was removed and sterile dressings were applied. FINDINGS: Ultrasound demonstrates a left pleural effusion. Imaging confirms the needle tip within the fluid. IMPRESSION: SUCCESSFUL ULTRASOUND GUIDED THORACENTESIS. Performed by Dr. Holland.
[2025-04-25 15:55] LABS: BASOPHILS,BODY FLUID 0 %; EOSINOPHILS,BODY FLUID 0 %; LYMPHOCYTES,BODY FLUID 2 %; MONOCYTES,BODY FLUID 0 %; NEUTROPHILS,BODY FLUID 98 %
--- NOTE | 2025-04-25 16:40 | CONSULTATION REPORT - RESIDENT ---
Consult Providers to CC Resident Creating Document: MARTINEZLULÚ DEL RIOYAZMINDANIEL SAENZ CC: MICHELLE PETERSEN MD History of Present Illness Reason for Admit\Complaint: Shortness of breath History of Present Illness Patient is a 64-year-old male patient with a past medical history of hepatitis-C treated, cirrhosis, hypertension, type 2 diabetes mellitus, who presented to the ER for jaundice for the last 3-4 days. Patient complained of abdominal distention, nausea, fullness and decreased oral intake for the last week associated with progressive jaundice, dark urine and loose stools. He denies abdominal pain, vomiting or altered mental status. Patient also complained of dry cough and intermittent left-sided chest pain with deep inspiration. Patient has been admitted to PCU with diagnosis of decompensated liver cirrhosis and possible portal vein thrombosis. Today, patient presented with significantly increasing shortness of breath reason why a rapid response was called on him and ICU team was consulted. Chest xray showed a significant left pleural effusion which is new compared to baseline xray. Allergies: Coded Allergies: Penicillins (Verified Allergy, Intermediate, RASH, 04/25/25) Home Medications Home Medications Active Reported Unable to Obtain Medications (Non-Formulary Medication) Each Bupropion HCl Sr (Bupropion HCl) 150 Mg Tablet.er 1 Tab PO BID Pantoprazole Sodium 40 Mg Tablet.dr 1 Tab PO DAILY Ozempic (Semaglutide) 0.25 Mg/0.368 Ml Pen.injctr Losartan Potassium 25 Mg Tablet 1 Tab PO DAILY Prilosec (Omeprazole) 20 Mg Capsule.dr 1 Cap PO DAILY Glipizide 5 Mg Tablet 1 Tablet PO BID Januvia* (Sitagliptin Phosphate*) 100 Mg Tablet 1 Tab PO DAILY Past Medical History Past Medical History Hypertension Diabetes mellitus type 2 Hep C treated 15 years ago Past Surgical History Surgical History Comment Benign intracranial tumor removed 10 years ago Past Social History Social History Comment Smoking: smokes half a pack daily Alcohol Use: None Drug Use: Methamphetamine (sober for the last two months) Lives In: Home Exam Vitals: Vital Signs Date Time Temp Pulse Resp B/P (MAP) Pulse Ox O2 Delivery O2 Flow Rate FiO2 04/25/25 16:11 99 17 92 40.0 100 04/25/25 16:00 103/58 (73) High Flow Nasal Cannula 04/25/25 15:30 97.9 General: General: moderate distress, awake, alert oriented to place, time, and person HEENT: significant pallor present, icterus present, moist mucous membranes Neck: No masses and tenderness Resp:L significantly labored. Decreased breath sounds in both bases, worse on the left Cardiovascular: Regular Rate and rhythm, normal S1 and S2 without murmur, rub or gallop Abdomen: Slightly distended, soft and nontender, no organomegaly, no guarding and rigidity, bowel sounds present Neuro: No focal weakness in the upper and lower limb muscles, power of the muscles 4/5 bilateral upper and lower extremities, normal reflexes bilaterally. Cranial nerves intact Extremities: No cyanosis,clubbing or edema Skin: Warm and Dry Psych: Agitated but cooperative with care Diagnostic Data Last Recorded Lab Results: 04/25/2543604/25/25436 Diagnostic Data: Laboratory Tests Test 04/24/25 18:50 Prothrombin Time 17.7 SECONDS (9.0-12.0) H INR International Normalized Ratio 1.8 INR Coagulation Comments Additional Plan Decompensated liver cirrhosis 2/2 chronic hepatitis-C, Child-Aguayo Class C Possible Portal vein thrombosis on ultrasound Portacaval, retroperitoneal lymphadenopathy - possible inflammatory/neoplasm Hepatitis B core Ab positive Possible neoplastic process ongoing CT shows: Portacaval, retroperitoneal lymphadenopathy which could be secondary to inflammatory, infectious, lymphoma neoplastic etiology. HIV negative Alpha-fetoprotein 27399 On enoxaparin 1 mg/kg b.i.d. Pending hep B surface antigen Was receiving levofloxacin and Flagyl Will DC levofloxacin and start Rocephin Continue pain management Pending transfer to higher level of care facility Sepsis secondary to pneumonia, most likely community-acquired Extensive left side pleural effusion Antibiotics as above Performed left thoracentesis today, drained 800 cc of dark yellow fluid with sediment, possible empyema Acute kidney injury, possibly due to vasomotor nephropathy Fluids as above Continue monitoring CMP Methamphetamine use disorder Patient has been sober for the last 2 months, currently living at [facility] UA screen neg for meth, positive for cannabinoids Moderate malnutrition Type 2 diabetes mellitus A1c 7.5 Not started on insulin given poor oral intake Hypertension - well-controlled Hold losartan due to LUKE Code Status: Full code DVT prophylaxis: Enoxaparin Analgesia/sedation: Morphine/Dilaudid Line/tube: PIV GI prophylaxis: Pantoprazole Nutrition: Carb controlled diet Prognosis: Guarded Disposition: Continue medical treatment. Patient needs to be transferred for a higher level of care facility Date of Service: Apr 25, 2025 Billing Provider: MICHELLE PETERSEN MD, LEONARDO LUIS Apr 25, 2025 16:40
[2025-04-25] MEDS: morphine 4 MG/ML inj SYRINge IV ONE (16:52)
[2025-04-25 17:38] LABS: INR 2.0 INR
--- NOTE | 2025-04-25 20:52 | PROCEDURE NOTE- Residance ---
Procedure Note Providers to CC CC: MICHELLE HAHN MD ~ Planned Procedure Thoracentesis Indications Left moderate pleural effusion Load Out Supervisor Resident: Dr Holland Attending: Dr Hahn Type of Anesthesia Local Informed Consent Obtained Description A time out was performed and the chest x-ray was reviewed, the appropriate side was confirmed and marked. My hands were washed immediately prior to the procedure. I wore a surgical cap, mask with protective eyewear, sterile gown and sterile gloves throughout the procedure. The patient was prepped and draped in a sterile manner using chlorhexidine scrub after the appropriate level was confirmed by ultrasound. 1% lidocaine was used to anesthesize the skin, subcut aneous tissue, superior aspect of the rib periosteum and parietal pleura. A 10- blade scalpel was used to ruby the skin at the insertion site. The [id number] needle was then introduced through the skin incision into the pleural space using negative aspiration pressure. The thoracentesis catheter was then threaded without difficulty. 800 ml of dark yellow/cloudy colored flu id was removed without difficulty. The catheter was then removed. No immediate complications were noted during the procedure. A post-procedure chest x-ray was reviewed showing improvement of pleural effusion. The fluid will be sent for studies. Estimated blood loss is minimal. Date of Service: Apr 25, 2025 Billing Provider: MICHELLE HAHN MDIZ QUANGYAZMIN SAENZ Apr 25, 2025 20:51
[2025-04-25] MEDS: albumin (human) 25% 100 ML IV solution IV ONE (23:10)
[2025-04-26] VITALS (33 sets, daily range): BP systolic 93–118; BP diastolic 38–59; PULSE 88–96; RESP 8–25; O2SAT 92–100
[2025-04-26] MEDS: albumin (human) 25% 100 ML IV solution IV ONE (03:00)
[2025-04-26 06:43] LABS: MEAN PLATELET VOLUME 8.2 FL (7.4-10.4); RED CELL DISTRIBUTION WIDTH 16.3 % (11.5-14.5)
[2025-04-26 07:16] LABS: CREATININE 3.32 MG/DL (0.60-1.10); TOTAL CARBON DIOXIDE 23.5 MMOL/L (24-32); eCRCL 22 ML/MIN; eGFR 19 ML/MIN
[2025-04-26 07:21] LABS: PHOSPHORUS 7.0 MG/DL (2.3-4.5)
[2025-04-26 07:45] LABS: BANDS% (MANUAL) 7.0 % (0-10); EOSINOPHILS % (MANUAL) 1.0 % (0-6); LYMPHOCYTES % (MANUAL) 7.0 % (21-51); MONOCYTES % (MANUAL) 7.0 % (2-12); NEUTROPHILS % (MANUAL) 78.0 % (42-75); PLATELET ESTIMATE NORMAL
--- NOTE | 2025-04-26 08:24 | RADIOLOGY REPORT ---
CHEST RADIOGRAPH Indication: Pulm effusion Technique: Single frontal view of the chest was obtained COMPARISON: DI CHEST,SINGLE VIEW on DOS: 04/25/25, DI CHEST,SINGLE VIEW on DOS: 04/25/25, DI CHEST,TWO VIEWS on DOS: 04/23/25 FINDINGS: Lines and Tubes: None Lungs: Increased multifocal airspace disease Pleura: No effusion. No pneumothorax. Cardiomediastinal contours: Unremarkable Bones: Unremarkable IMPRESSION: Increased multifocal airspace disease.
--- NOTE | 2025-04-26 09:38 | CONSULTATION REPORT ---
Consult Providers to CC ~ History of Present Illness Primary Medical Doctor: Miguelina Elizalde md Reason for Admit\Complaint: ongoing azotemia, hyperkalemia History of Present Illness I have been requested to see this 64-year-old male patient for ongoing azotemia and hyperkalemia that has a past medical history of hepatitis-C treated, cirrhosis, hypertension, type 2 diabetes mellitus, who presented to the ER for jaundice for the last 3-4 days. Patient complained of abdominal distention, nausea, fullness and decreased oral intake for the last week associated with progressive jaundice, dark urine and loose stools. He denies abdominal pain, vomiting or altered mental status. Patient also complained of dry cough and intermittent left-sided chest pain with deep inspiration. Patient has been admitted to PCU with diagnosis of decompensated liver cirrhosis and possible portal vein thrombosis. Patient presented with significantly increasing shortness of breath reason why a rapid response was called on him and ICU team was consulted. Chest xray showed a significant left pleural effusion which is new compared to baseline xray. This was tapped and 800 cc fluid was removed. He has a history of methamphetamine abuse. He is emotional. He is not too happy to talk to a nail tech, when I am telling him today about the possibility of him needing dialysis round the corner, if he doesn't turn around. He started crying immediately inconsolably. Allergies: Coded Allergies: Penicillins (Verified Allergy, Intermediate, RASH, 04/25/25) Home Medications Home Medications Active Reported Unable to Obtain Medications (Non-Formulary Medication) Each Bupropion HCl Sr (Bupropion HCl) 150 Mg Tablet.er 1 Tab PO BID Pantoprazole Sodium 40 Mg Tablet.dr 1 Tab PO DAILY Ozempic (Semaglutide) 0.25 Mg/0.368 Ml Pen.injctr Losartan Potassium 25 Mg Tablet 1 Tab PO DAILY Prilosec (Omeprazole) 20 Mg Capsule.dr 1 Cap PO DAILY Glipizide 5 Mg Tablet 1 Tablet PO BID Januvia* (Sitagliptin Phosphate*) 100 Mg Tablet 1 Tab PO DAILY Past Medical History Past Medical History Hypertension Diabetes mellitus type 2 Hep C treated 15 years ago Past Surgical History Surgical History Comment Benign intracranial tumor removed 10 years ago Past Social History Social History Comment Smoking: smokes half a pack daily Alcohol Use: None Drug Use: Methamphetamine (sober for the last two months) Lives In: Home ROS ROS not cooperative. very labile emotions. no resp distress Exam Vitals: Vital Signs Date Time Temp Pulse Resp B/P (MAP) Pulse Ox O2 Delivery O2 Flow Rate FiO2 04/26/25 08:29 9 99 High Flow Nasal Cannula 40.0 65 04/26/25 08:24 96.8 90 105/51 (69) General: Vital Signs: As above General: Normal body habitus, no acute distress. Skin: No rashes, lumps, ulcers, blisters, purpura or petechiae HEENT: Anicteric sclera, BRYSON Neck: Supple and nontender without enlargement of the thyroid, or lymphadenopathy. Chest: Normal size and shape, no tenderness, CTA bilaterally Heart: Regular. No jugular venous distention, S1 and S2 heard , no gallop Abdomen: Soft and non tender no organomegaly,BS+ Extremities: 2+ pedal edema Neuro: Nonfocal. Diagnostic Data Last Recorded Lab Results: 04/26/25 0611 04/26/25 0611 Diagnostic Data: Laboratory Tests Test 04/25/25 17:17 Prothrombin Time 19.1 SECONDS (9.0-12.0) H INR International Normalized Ratio 2.0 INR Coagulation Comments Problems: (1) LUKE (acute kidney injury) Assessment & Plan: possible HRS. Urine appears bland. check urine sodium. creatinine is increasing, with the sepsis, more probability of ATN. needs echocardiogram to ruleout any alcoholic or methamphetamine induced cardiomyopathy. Heading towards dialysis if he does not respond to diuretics and conservative efforts. (2) Hyperkalemia Assessment & Plan: treat medically now. will follow with icu team and if he goes in the wrong direction, will need CVV[facility] vs dialysis. 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 Possible associated hepatitis-B. Portacaval, retroperitoneal lymphadenopathy - possible inflammatory/neoplasm RACHEAL DENIS MD Apr 26, 2025 09:38
--- NOTE | 2025-04-26 11:15 | PROGRESS NOTE ---
Subjective Subjective Patient was seen and examined at the bedside. Patient today was sitting up in bed awake alert and conversant. Did not seem confused. Speech incomprehensive at times. No respiratory distress. Currently on high-flow nasal cannula at 40 L of oxygen per minute delivering 65% FiO2. Reason for visit: Pulmonary critical care follow-up Reviewed: Care Plan, H&P, Labs, Radiology Review of Systems Changes from previous H/P or p: No Changes Daily Progress Note Exam Vitals Vital Signs Date Time Temp Pulse Resp B/P (MAP) Pulse Ox O2 Delivery O2 Flow Rate FiO2 04/26/25 10:48 91 8 93/58 (70) 96 High Flow Nasal Cannula 40.0 65 04/26/25 08:24 96.8 Result Diagram: 04/26/25 0611 04/26/25 06 Exam General: moderate distress, awake, alert oriented to place, time, and person HEENT: significant pallor present, icterus present, moist mucous membranes Neck: No masses and tenderness Resp:L significantly labored. Decreased breath sounds in both bases, worse on the left Cardiovascular: Regular Rate and rhythm, normal S1 and S2 without murmur, rub or gallop Abdomen: Slightly distended, soft and nontender, no organomegaly, no guarding and rigidity, bowel sounds present Neuro: No focal weakness in the upper and lower limb muscles, power of the muscles 4/5 bilateral upper and lower extremities, normal reflexes bilaterally. Cranial nerves intact Extremities: No cyanosis,clubbing or edema Skin: Warm and Dry Psych: Calm and cooperative. Results Coagulation Studies Laboratory Tests Test 04/25/25 17:17 Prothrombin Time 19.1 SECONDS (9.0-12.0) H INR International Normalized Ratio 2.0 INR Coagulation Comments VTE VTE Risk Score VTE Risk Score Reference Ranges: Score 0-1 = Low Risk (Aggressive mobilization; early ambulation; no VTE prophylaxis required) Score 2: Moderate Risk (Intermittent/Pneumatic Compression Device OR Lovenox/Heparin/Coumadin) Score 3-4: High Risk (Intermittent/Pneumatic Compression Device AND Lovenox/Heparin/Coumadin) Score > or = 5: Highest Risk (Intermittent/Pneumatic Compression Device AND Lovenox/Heparin/Coumadin) Assessment/Plan Plan Gram-negative manny sepsis: Identification and sensitivities still pending: At ceftriaxone two antibiotic regimen. Sepsis secondary to pneumonia, most likely community-acquired Left chest empyema based on pleural fluid analysis Decompensated liver cirrhosis 2/2 chronic hepatitis-C, Child-Aguayo Class C: Awaiting transferred to [place]. Transaminitis Active hepatitis-C and possible hepatitis-B as well Possible Portal vein thrombosis on ultrasound Portacaval, retroperitoneal lymphadenopathy - possible inflammatory/neoplasm Possible neoplastic process ongoing Extensive left side pleural effusion Acute kidney injury, possibly due to vasomotor nephropathy: BUN creatinine 70/3.32. Nephrology consulted. Methamphetamine use disorder Moderate malnutrition Type 2 diabetes mellitus: Serum glucose control target 140-180 mg/dL Hypertension - well-controlled Code Status: Full code DVT prophylaxis: Enoxaparin Analgesia/sedation: Morphine/Dilaudid Line/tube: PIV GI prophylaxis: Pantoprazole Nutrition: Carb controlled diet Prognosis: Guarded Disposition: Continue medical treatment. Patient needs to be transferred for a higher level of care facility. MICHELLE PETERSEN MD Apr 26, 2025 11:15
--- NOTE | 2025-04-26 13:32 | PROGRESS NOTE- Residence ---
Progress Note - Resident Providers to CC Resident Creating Document: PREM COELHO RES ~ Antibiotic Timeout Antibiotic Ordered?: Yes Subjective Patient was seen and examined at the bedside. Patient was alert and more comfortable than yesterday despite being on high-flow oxygen. Patient was crying and asked if he was dying and stated he did not want to . He also is complaining of nonspecific abdominal pain. No overnight events reported. Objective Vital Signs Date Time Temp Pulse Resp B/P (MAP) Pulse Ox O2 Delivery O2 Flow Rate FiO2 04/26/25 12:19 93 10 94/46 (62) 98 High Flow Nasal Cannula 40.0 65 04/26/25 08:24 96.8 Result Diagram: 04/26/25 0611 04/26/25 0611 General: Awake, alert, crying, moderate respiratory distress. HEENT: Conjunctiva pink, jaundice 2+/4+, Mucus Membranes dry Neck: Supple without masses and tenderness. Resp: Tachypnea. Decreased lung sounds in the left lungs with diffuse crackles. Heart: Tachycardic, Regular Rate and rhythm, normal S1 and S2 without murmur, rub or gallop. Abdomen: distended, normal bowel sounds, tender to palpation, no guarding or rebound, liver palpable 2 cm below the right costal margin Extremities: No cyanosis,clubbing or edema. Skin: Warm and Dry. Coagulation Studies Laboratory Tests Test 04/25/25 17:17 Prothrombin Time 19.1 SECONDS (9.0-12.0) H INR International Normalized Ratio 2.0 INR Coagulation Comments Plan Plan Assessment 64-year-old male patient initially admitted for painless jaundice, found to have portal vein thrombosis and treated with enoxaparin. During hospitalization the patient developed confusion, cough and respiratory distress, chest x-ray showed extensive left side effusion. 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 Possible associated hepatitis-B. Portacaval, retroperitoneal lymphadenopathy - possible inflammatory/neoplasm Patient presents with jaundice for the last four days Complains of abdominal distention, decreased oral intake, fullness and nausea for the last week Denies abdominal pain or vomiting but signs of dehydration History of chronic hepatitis-C, treated 15 years ago Total bilirubin 6.3, AST 307, ALT 86, alkaline phosphatase 487 US abdomen: Cirrhotic appearing liver with small to moderate perihepatic free fluid. Flow was not detected within the portal vein. Correlate for Possible portal vein thrombosis. Common bile duct measures 0.4 cm in diameter. Nonspecific gallbladder wall thickening and 0.[address] abdomen with IV contrast Plan to start enoxaparin therapeutic dose after CT abdomen Ordered INR, hepatitis panel, alpha fetoprotein IV hydration with lactated ringer Ordered ESR, procalcitonin, VitB12, iron profile and occult blood 04/24/2025 Ammonia < 10, ASL 268, ALT 75, alkaline phosphatase 444, bilirrubin 7.3, direct bilirrubin 4.8 Ferritin 2650, Iron 36, TIBC 162 HIV negative, pending hepatitis panel Pending alpha-fetoprotein and GGT Started on enoxaparin 1 mg/kg b.i.d. Started on Dilaudid 0.5mg for pain management Ordered therapeutic paracentesis CT abdomen: 1. Cirrhotic liver morphology with biliary ductal dilatation and complete portal vein thrombosis, as seen on same-day abdominal ultrasound. 2. Sequela of portal hypertension. 3. Small bilateral pleural effusions. 4. Mildly prominent retroperitoneal and portal caval nodes, nonspecific but favored reactive. Patient needs to be transferred for higher level of care 04/25/2025 Patient worsening clinical status and increasing abdominal pain Lactic acid 4.6, WBC 20.5, ESR [address] shows: - Portacaval, retroperitoneal lymphadenopathy which could be secondary to inflammatory, infectious, lymphoma neoplastic etiology. - Bibasilar pulmonary consolidation/atelectasis. Moderate bilateral pleural effusions. - Soft tissue edema and anasarca. Patient was started on levofloxacin and metronidazole in the morning Patient received IV fluids given positive sepsis criteria Hepatitis-B total antibiotic is also positive, ordered surface antigen Alpha fetoprotein 26718 04/26/2025 AST 351, ALT 92, bilirubin 9.3 Patient started on cefepime Pending Hep B antigen Continue therapeutic anticoagulation Sepsis secondary to pneumonia, most likely community-acquired Extensive left side pleural effusion Acute Respiratory failure No clinical signs of pneumonia at admission, patient denied productive cough, fever or shortness for breath At presentation WBC 10.5 and procalcitonin < 0.5. Clinical presentation did not indicate pneumonia but is unable to exclude given CXR below Intial CXR: Cardiomegaly with pulmonary vascular congestion and bilateral patchy airspace opacities. Small bilateral pleural effusions Labs today showed WBC 20.5, procalcitonin 13.83, lactic acid 4.6 Patient was in respiratory distress, requiring oxygen, coughing, tachycardic and tachypneic Repeat CXR: Extensive consolidation and effusion in the left hemithorax with near-complete whiteout. This is increased compared with recent chest imaging. Right lung base consolidation and effusion, increased. Plan Patient was transferred to ICU Ordered diagnostic/therapeutic thoracocentesis Patient is currently on levofloxacin 04/26/2025 Blood cultures growing Gram-negative rods Patient started on cefepime Thoracocentesis 800 mL, exudative criteria CXR today: Increased multifocal airspace disease. Acute kidney injury, possibly due to ATN Unable to exclude hepatorenal syndrome At presentation Cr 0.67 and BUN 14 Today Cr 3.32 and BUN 70 Patient started on Lasix 40 mg IV q8h Nephrology Dr Rees consulted Patient might need hemodialysis if does not respond to medical management Methamphetamine use disorder Patient has been sober for the last 2 months, currently living at [facility] UA screen neg for meth, positive for cannabinoids Moderate malnutrition Type 2 diabetes mellitus A1c 7.5 Albumin 2.4 Placed on hyper/hypoglycemia protocol Not started on lantus given poor oral intake Hypertension - well-controlled Hold losartan due to LUKE Code Status: Full code DVT prophylaxis: Enoxaparin Analgesia/sedation: Morphine/Dilaudid Line/tube: PIV GI prophylaxis: Pantoprazole Nutrition: Carb controlled diet Prognosis: Guarded Disposition: Continue medical treatment per ICU team. Resident attestation The above note has been reviewed and supervised by a senior resident PGY2/PGY3 Patient was seen, examined and discussed with the attending physician Date of Service: Apr 26, 2025 Billing Provider: WANDA ADAN DO Common Visit Codes: [id number] INP/OBS CARE(HIGH) PREM COELHO, RES Apr 26, 2025 13:32 WANDA ADAN DO Apr 26, 2025 15:09
[2025-04-26] MEDS: PERFLUTREN PROTEIN-A MICROSPHR (Optison) 0.22 MG/ML 3ML VIAL IV ONE (19:21)
[2025-04-26 19:58] LABS: INR 1.9 INR
[2025-04-26] MEDS: cefepime 1GM in D5W 50mL 50 ML IV SCH (21:23)
--- NOTE | 2025-04-26 21:32 | CARDIOLOGY REPORT ---
APPROVED REPORT EXAM: Comprehensive 2D, Doppler, and color-flow Echocardiogram. Patient Location: 2014 Blood Pressure: 94/46 mmHg Heart Rate: 92 bpm Rhythm: Sinus Rhythm Indications Congestive Heart Failure Sepsis Post Thoracentesis (04/25/25) Liver Cirrhosis Hypertension Diabetes Mellitus Hep C (Active) Current Every Day Smoker Meth Use Driller Machine: None Previous echo: None 2D Dimensions RVDd 3.4 cm LA Diam 4.9 cm IVSd 1.1 (0.7-1.1cm) LVDd 5.2 cm PWd 1.2 (0.7-1.1cm) IVSs 1.2 (0.8-1.2cm) RA Minor 3.7 cm LVDs 3.8 (2.5-4.0cm) PWs 1.1 (0.8-1.2cm) LVOT Diameter 2.11 (1.8-2.4cm) IVC 20.08 mm FS (%) 25.9 % SV 65.1 ml CO 3.9 L/min M-Mode Dimensions RVDd 3.19 (2.1-3.2cm) Left Atrium(MM) 4.65 (2.5-4.0cm) IVSd 1.32 (0.7-1.1cm) LVDd 4.28 (4.0-5.6cm) Aortic Root 3.48 (2.2-3.7cm) PWd 1.39 (0.7-1.1cm) Aortic Cusp Exc 1.72 (1.5-2.0cm) IVSs 1.43 cm LVDs 3.15 (2.0-3.8cm) FS (%) 26 % PWs 1.65 cm ESV(Teich) 39.4 ml LVEF(%) 65 (>50%) Aortic Valve AoV Peak Wesley. 259.9 cm/s AoV VTI 38.2 cm AO Peak GR. 27.0 mmHg AO Mean GR. 14 mmHg LVOT VTI 29.45 cm LVOT Peak Wesley. 183.8 cm/s CRYSTAL(VTI)/BSA 2.69 cm2/m2 CRYSTAL (VTI) 2.69 cm2 Mitral Valve MV E Velocity 143.1 cm/s MV Peak Gr. 8 mmHg MV DECEL TIME 244 ms MV A Velocity 140.6 cm/s MV Mean Gr. 4 mmHg MV PHT 88 ms E/A Ratio 1.0 MVA (PHT) 2.50 cm2 MV VMax 141.8 cm/s MV VMean 102.7 cm/s MVA VTI 2.57 cm2 MV VTI 39.8 cm Tricuspid Valve TR P. Velocity 339 cm/s RAP ESTIMATE 10 mmHg TR Peak Gr. 46 mmHg RVSP 56 mmHg LEFT VENTRICLE Normal LV size and wall thickness. Overall systolic function is normal. Overall LVEF is 65%. RIGHT VENTRICLE Right ventricle is mildly dilated with normal contractility. Estimated PA systolic pressure is 56 mmHg. ATRIA Left atrium is moderately dilated. The right atrium size appears grossly normal. AORTIC VALVE Trileaflet AV appears heavily sclerotic and thickened. No stenosis with trivial insufficiency. Cannot exclude aortic valve vegetation due to poor image quality. Recommend clinical correlation if indicated. MITRAL VALVE Moderate MV annular calcification and thickening. Mild stenosis. MVA: 2.51 cmsq per VTI; Pkv: 141.8 cm/sec; Gradients: 8/4 mmHG. Cannot exclude mitral valve vegetation due to poor image quality. Recommend clinical correlation if indicated. Mild regurgitation. TRICUSPID VALVE TV appears structurally normal with mild regurgitation. Elevated right heart pressures as noted above. PULMONIC VALVE Normal PV without stenosis, physiologic insufficiency. GREAT VESSELS The aortic root is normal in size. IVC is normal in size and collapses less than 50% with inspiration. PERICARDIUM Normal pericardium. No pericardial effusion seen. Other Information Study Quality: Adequate Conclusion Normal LV size and wall thickness. Overall systolic function is normal. Overall LVEF is 65%. Right ventricle is mildly dilated with normal contractility. Estimated PA systolic pressure is 56 mmHg. Left atrium is moderately dilated. The right atrium size appears grossly normal. Trileaflet AV appears heavily sclerotic and thickened. No stenosis with trivial insufficiency. Cannot exclude aortic valve vegetation due to poor image quality. Recommend clinical correlation if indicated. Moderate MV annular calcification and thickening. Mild stenosis. MVA: 2.51 cmsq per VTI; Pkv: 141.8 cm/sec; Gradients: 8/4 mmHG. Cannot exclude mitral valve vegetation due to poor image quality. Recommend clinical correlation if indicated. Mild regurgitation. TV appears structurally normal with mild regurgitation. Elevated right heart pressures as noted above. Normal pericardium. No pericardial effusion seen.
[2025-04-26] MEDS: morphine 4 MG/ML inj SYRINge ONE (23:21)
[2025-04-27] VITALS (28 sets, daily range): BP systolic 79–140; BP diastolic 39–70; PULSE 67–165; RESP 11–23; O2SAT 93–99
[2025-04-27] MEDS: haloperidol lactate 5mg/ml inj IM ONE (00:18)
[2025-04-27] MEDS: amiodarone 150mg/dext, iso-os 100 ML IV ONE ×2 (01:49→02:12)
[2025-04-27] MEDS: dexmedetomidin/NS 400mcg/100ml 100 ML IV PRN (02:13)
[2025-04-27] MEDS: amiodarone/D5 360MG/200ML BAG 200 ML IV SCH (02:13)
[2025-04-27 05:44] LABS: APTT 44 SECONDS (22-32); INR 1.9 INR
[2025-04-27 05:48] LABS: PHOSPHORUS 5.1 MG/DL (2.3-4.5)
[2025-04-27 06:01] LABS: MEAN PLATELET VOLUME 8.3 FL (7.4-10.4); RED CELL DISTRIBUTION WIDTH 16.3 % (11.5-14.5)
[2025-04-27 06:04] LABS: CREATININE 3.46 MG/DL (0.60-1.10); TOTAL CARBON DIOXIDE 22.1 MMOL/L (24-32); eCRCL 21 ML/MIN; eGFR 18 ML/MIN
[2025-04-27] MEDS: PHENYLephrine 10mg/ml inj. 50 MG in normal saline 250ml IV soln 245 ML IV SCH (06:47)
[2025-04-27] MEDS: morphine 4 MG/ML inj SYRINge IV PRN (08:01)
[2025-04-27] MEDS: enoxaparin 80mg/0.8ml syringe SUBCUT SCH (08:11)
--- NOTE | 2025-04-27 10:33 | PROGRESS NOTE ---
Progress Note Dictate Providers to CC ~ Central Line/PICC still needed: Yes Central Line/PICC Necessity: Prolonged IV access req Ramirez Indications Met/Not Met: F/C Indications Met Antibiotic Ordered?: N/A Subjective Subjective urine output is picking up. He gets delirioius. He has hepC with cirrhosis and portal vein thrombosis, now with ongoing azotemia without active urine sediments. Objective Vitals Vital Signs Date Time Temp Pulse Resp B/P (MAP) Pulse Ox O2 Delivery O2 Flow Rate FiO2 04/27/25 14:00 71 17 121/64 (83) 94 Nasal Cannula 4.0 04/27/25 11:00 97.7 04/27/25 07:32 36 Lab Results: 04/27/254 04/27/25423 Objective Vital Signs: As above General: Normal body habitus, no acute distress. Skin: No rashes, lumps, ulcers, blisters, purpura or petechiae HEENT: icteric sleeping Neck: Supple and nontender without enlargement of the thyroid, or lymphadenopathy. Chest: Normal size and shape, no tenderness, CTA bilaterally Heart: Regular. No jugular venous distention, S1 and S2 heard , no gallop Abdomen: Soft and non tender no organomegaly,BS+ Extremities: No pedal edema Coagulation Studies Laboratory Tests Test 04/27/25 04:24 Prothrombin Time 18.5 SECONDS (9.0-12.0) H INR International Normalized Ratio 1.9 INR Activated Partial Thromboplast Time 44 SECONDS (22-32) H Coagulation Comments Advance Care Planning Advanced Care plannin - 30 Minutes Problem\Assessment\Plan Problems/Diagnosis: (1) LUKE (acute kidney injury) Assessment & Plan: urine output is improving. negative fluid balance this am. does not appear to be HRS. will continue to monitor. NO emergent need for renal replacement therapy. He needs palliative care consultation as well. (2) Hyperkalemia Assessment & Plan: treat medically now. will follow with icu team and if he goes in the wrong direction, will need CVVH vs dialysis. thankfuly the K is better today. 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 Possible associated hepatitis-B. Portacaval, retroperitoneal lymphadenopathy - possible inflammatory/neoplasm RACHEAL DENIS MD Apr 27, 2025 10:33
--- NOTE | 2025-04-27 15:52 | PROGRESS NOTE- Residence ---
Progress Note - Resident Providers to CC Resident Creating Document: DENA KATHLEEN RES ~ Antibiotic Timeout Antibiotic Ordered?: Yes Subjective Patient was seen and examined at the bedside. Patient is mildly altered and not able to have a conversation. He is on restraints as he was agitated today afternoon. Objective Vital Signs Date Time Temp Pulse Resp B/P (MAP) Pulse Ox O2 Delivery O2 Flow Rate FiO2 04/27/25 15:00 97.5 72 18 109/63 (78) 96 Nasal Cannula 4.0 04/27/25 07:32 36 Result Diagram: 04/27/2542304/27/25423 General: Awake, altered, resting comfortably in the bed, in no acute distress HEENT: Atraumatic, normocephalic, jaundice 2+/4+, pink conjunctiva, dry mucous membranes Neck: Trachea midline. Supple, full range of motion, no JVD Cardiac: Regular rhythm, regular rate with no murmurs all over the precordium. Respiratory: Decreased lung sounds in the left lungs with diffuse crackles, no tachypnea, no wheezing Gastrointestinal: Abdomen distended, tender to palpation, normal bowel sounds, no guarding or rebound, liver palpable 2 cm below the right costal margin Musculoskeletal: No pedal edema, no cyanosis Skin: Warm and dry Coagulation Studies Laboratory Tests Test 04/27/25 04:24 Prothrombin Time 18.5 SECONDS (9.0-12.0) H INR International Normalized Ratio 1.9 INR Activated Partial Thromboplast Time 44 SECONDS (22-32) H Coagulation Comments Assessment Assessment 64-year-old male patient initially admitted for painless jaundice, found to have portal vein thrombosis and treated with enoxaparin. During hospitalization the patient developed confusion, cough and respiratory distress, chest x-ray showed extensive left side effusion. 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 Possible associated hepatitis-B. Portacaval, retroperitoneal lymphadenopathy - possible inflammatory/neoplasm Patient presents with jaundice for the last four days Complains of abdominal distention, decreased oral intake, fullness and nausea for the last week Denies abdominal pain or vomiting but signs of dehydration History of chronic hepatitis-C, treated 15 years ago Total bilirubin 6.3, AST 307, ALT 86, alkaline phosphatase 487 US abdomen: Cirrhotic appearing liver with small to moderate perihepatic free fluid. Flow was not detected within the portal vein. Correlate for Possible portal vein thrombosis. Common bile duct measures 0.4 cm in diameter. Nonspecific gallbladder wall thickening and 0.[address] abdomen with IV contrast Plan to start enoxaparin therapeutic dose after CT abdomen Ordered INR, hepatitis panel, alpha fetoprotein IV hydration with lactated ringer Ordered ESR, procalcitonin, VitB12, iron profile and occult blood 04/24/2025 Ammonia < 10, ASL 268, ALT 75, alkaline phosphatase 444, bilirrubin 7.3, direct bilirrubin 4.8 Ferritin 2650, Iron 36, TIBC 162 HIV negative, pending hepatitis panel Pending alpha-fetoprotein and GGT Started on enoxaparin 1 mg/kg b.i.d. Started on Dilaudid 0.5mg for pain management Ordered therapeutic paracentesis CT abdomen: 1. Cirrhotic liver morphology with biliary ductal dilatation and complete portal vein thrombosis, as seen on same-day abdominal ultrasound. 2. Sequela of portal hypertension. 3. Small bilateral pleural effusions. 4. Mildly prominent retroperitoneal and portal caval nodes, nonspecific but favored reactive. Patient needs to be transferred for higher level of care 04/25/2025 Patient worsening clinical status and increasing abdominal pain Lactic acid 4.6, WBC 20.5, ESR [address] shows: - Portacaval, retroperitoneal lymphadenopathy which could be secondary to inflammatory, infectious, lymphoma neoplastic etiology. - Bibasilar pulmonary consolidation/atelectasis. Moderate bilateral pleural effusions. - Soft tissue edema and anasarca. Patient was started on levofloxacin and metronidazole in the morning Patient received IV fluids given positive sepsis criteria Hepatitis-B total antibiotic is also positive, ordered surface antigen Alpha fetoprotein [id number] 04/26/2025 AST 351, ALT 92, bilirubin 9.3 Patient started on cefepime Pending Hep B antigen Continue therapeutic anticoagulation 04/27/2025 AST 463, ALT 119 Total bilirubin has downtrended to 7.8 Continue IV cefepime 1 g q.12h Pending Hep B antigen Awaiting transfer to the [facility] Hepatology Sepsis secondary to pneumonia, most likely community-acquired Extensive left side pleural effusion Acute Respiratory failure No clinical signs of pneumonia at admission, patient denied productive cough, fever or shortness for breath At presentation WBC 10.5 and procalcitonin < 0.5. Clinical presentation did not indicate pneumonia but is unable to exclude given CXR below Intial CXR: Cardiomegaly with pulmonary vascular congestion and bilateral patchy airspace opacities. Small bilateral pleural effusions Labs today showed WBC 20.5, procalcitonin 13.83, lactic acid 4.6 Patient was in respiratory distress, requiring oxygen, coughing, tachycardic and tachypneic Repeat CXR: Extensive consolidation and effusion in the left hemithorax with near-complete whiteout. This is increased compared with recent chest imaging. Right lung base consolidation and effusion, increased. Plan Patient was transferred to ICU Ordered diagnostic/therapeutic thoracocentesis Patient is currently on levofloxacin 04/26/2025 Blood cultures growing Gram-negative rods Patient started on cefepime Thoracocentesis 800 mL, exudative criteria CXR today: Increased multifocal airspace disease. 04/27/2025 Continue IV cefepime, levofloxacin and Metronidazole WBC downtrended to 13.5 with neutrophilic predominance of 83.3% Pulse ox 93 at 4 L, NC Acute kidney injury, possibly due to ATN Unable to exclude hepatorenal syndrome At presentation Cr 0.67 and BUN 14 Today Cr 3.32 and BUN 70 Patient started on Lasix 40 mg IV q8h Nephrology Dr Rees consulted Patient might need hemodialysis if does not respond to medical management 04/27/25: Creatinine elevated-3.46 BUN has up trended to 89, BUN/Cr 25.7 He has negative fluid balance of 965 ml today Potassium is 5 Dr. Rees recommended to continue medical treatment as per ICU team Methamphetamine use disorder Patient has been sober for the last 2 months, currently living at [facility] UA screen neg for meth, positive for cannabinoids Moderate malnutrition Type 2 diabetes mellitus A1c 7.5 Albumin 2.4 Placed on hyper/hypoglycemia protocol Not started on lantus given poor oral intake Hypertension - well-controlled Hold losartan due to LUKE Code Status: Full code DVT prophylaxis: Enoxaparin Analgesia/sedation: Morphine/Dilaudid Line/tube: PIV GI prophylaxis: Pantoprazole Nutrition: Carb controlled diet Prognosis: Guarded Disposition: Continue medical treatment per ICU team. Resident attestation The above note has been reviewed and supervised by a senior resident PGY2/PGY3 Patient was seen, examined and discussed with the attending physician Dena Kathleen MD Internal Medicine resident, PGY-1 Date of Service: Apr 27, 2025 Billing Provider: WANDA ADAN DO Common Visit Codes: [id number] INP/OBS CARE(HIGH) DENA KATHLEEN, RES Apr 27, 2025 15:52 ENRIKE SALCIDO, RES Apr 27, 2025 17:25 WANDA ADAN DO Apr 27, 2025 18:28
--- NOTE | 2025-04-27 16:01 | PROGRESS NOTE ---
Subjective Subjective Patient was seen and examined at the bedside. He was sleeping and at the time of my visit calm. Nurses report intermittent agitation and violent behavior. Reason for visit: Pulmonary critical care follow-up Reviewed: Care Plan, H&P, Labs, Radiology Review of Systems Changes from previous H/P or p: No Changes Daily Progress Note Exam Vitals Vital Signs Date Time Temp Pulse Resp B/P (MAP) Pulse Ox O2 Delivery O2 Flow Rate FiO2 04/27/25 15:00 97.5 72 18 109/63 (78) 96 Nasal Cannula 4.0 04/27/25 07:32 36 Result Diagram: 04/27/2542304/27/25423 Exam General: moderate distress, awake, alert oriented to place, time, and person HEENT: significant pallor present, icterus present, moist mucous membranes Neck: No masses and tenderness Resp:L significantly labored. Decreased breath sounds in both bases, worse on the left Cardiovascular: Regular Rate and rhythm, normal S1 and S2 without murmur, rub or gallop Abdomen: Slightly distended, soft and nontender, no organomegaly, no guarding and rigidity, bowel sounds present Neuro: No focal weakness in the upper and lower limb muscles, power of the muscles 4/5 bilateral upper and lower extremities, normal reflexes bilaterally. Cranial nerves intact Extremities: No cyanosis,clubbing or edema Skin: Warm and Dry Psych: Calm and cooperative at the time of my visit. Results Coagulation Studies Laboratory Tests Test 04/27/25 04:24 Prothrombin Time 18.5 SECONDS (9.0-12.0) H INR International Normalized Ratio 1.9 INR Activated Partial Thromboplast Time 44 SECONDS (22-32) H Coagulation Comments VTE VTE Risk Score VTE Risk Score Reference Ranges: Score 0-1 = Low Risk (Aggressive mobilization; early ambulation; no VTE prophylaxis required) Score 2: Moderate Risk (Intermittent/Pneumatic Compression Device OR Lovenox/Heparin/Coumadin) Score 3-4: High Risk (Intermittent/Pneumatic Compression Device AND Lovenox/Heparin/Coumadin) Score > or = 5: Highest Risk (Intermittent/Pneumatic Compression Device AND Lovenox/Heparin/Coumadin) Assessment/Plan Plan Gram-negative manny sepsis: Identification and sensitivities still pending: Continue cefepime, levofloxacin and metronidazole. Sepsis secondary to pneumonia, most likely community-acquired Left chest empyema suggested by pleural fluid analysis Decompensated liver cirrhosis 2/2 chronic hepatitis-C, Child-Aguayo Class C: Awaiting transferred to [facility]. Coagulopathy: PT 18.5, INR 1.9 and PTT 44 Transaminitis Active hepatitis-C and possible hepatitis-B as well Possible Portal vein thrombosis on ultrasound Portacaval, retroperitoneal lymphadenopathy - possible inflammatory/neoplasm Possible neoplastic process ongoing Extensive left side pleural effusion Acute kidney injury, possibly due to vasomotor nephropathy: BUN creatinine 89/3.46. Nephrology consulted. Methamphetamine use disorder Moderate malnutrition Type 2 diabetes mellitus: Serum glucose control target 140-180 mg/dL Hypertension - well-controlled Code Status: Full code DVT prophylaxis: Enoxaparin Analgesia/sedation: Morphine/Dilaudid Line/tube: PIV GI prophylaxis: Pantoprazole Nutrition: Carb controlled diet Prognosis: Guarded Disposition: Continue medical treatment. Patient needs to be transferred for a higher level of care facility. Expected Outcome/Goals Expected Outcomes/Goals: Meet minimum 75% estimated protein and energy needs with diet advancement, wt maintenance, bowel regularity, skin integrity, BG 80-180 mg/dL MICHELLE PETERSEN MD Apr 27, 2025 16:01
[2025-04-27] MEDS: diazepam inj 5 MG/ML inj. IV PRN (16:28)
--- NOTE | 2025-04-27 17:15 | PROCEDURE NOTE- Residance ---
Procedure Note Providers to CC CC: MICHELLE PETERSEN MD ~ Planned Procedure Right IJV central line placement Informed Consent During the informed consent discussion regarding the procedure, or treatment, I explained the following to the patient: a. Nature of the procedure or treatment and who will perform the procedure or treatment. b. Necessity for procedure and the possible benefits. c. Risks and complications (most common and serious). d. Alternative treatments and the risks, benefits and side effects of each (including no treatment). e. Likelihood of the patient achieving his/her goals without this procedure and surgery treatment. f. Problems that might occur during the recuperation. g. Conflicts of interest, if any Description A time out was performed. My hands were washed immediately prior to the procedure. I wore a surgical cap, mask with protective eyewear, full gown and sterile gloves throughout the procedure. The patient was placed in Trendelenburg position. RIGHT chest region was prepped using chlorhexidine scrub and draped in sterile fashion using a full drape and sterile probe cover and sterile gel employed. The medial and lateral heads of the sternocleidomastoid muscle were identified as was the carotid pulse. The Internal Jugular vein was identified using the ultrasound. Anesthesia was achieved over the vein using 1% lidocaine. Using real-time out of plane guidance, the introducer needle was inserted into the Internal Jugular vein under direct ultrasound visualization. Venous blood was withdrawn. The syringe was removed and a guidewire was advanced into the introducer needle. The guidewire was visualized in the Internal Jugular Vein by ultrasound. A small incision was made at the skin surface with a scalpel and the introducer needle was exchanged for a dilator over the guidewire. After appropriate dilation was obtained, the dilator was exchanged over the wire for a central venous catheter. The wire was removed and the catheter was sutured in place. A sterile sorbaview shield was placed over the catheter at the insertion site. The patient tolerated the procedure without any hemodynamic compromise. At time of procedure completion, all ports aspirated and flushed properly. All the sharps have been discarded into the sharps container. All the volume medical waste has been tracked into the biomedical waist can. Post-procedure chest x-ray confirmed the location of the line. Estimated blood loss is less than 10 mL Complication None Date of Service: Apr 27, 2025 Billing Provider: AIDE TEJADA MD, SIVA, RES Apr 27, 2025 17:15
--- NOTE | 2025-04-27 17:52 | RADIOLOGY REPORT ---
CHEST RADIOGRAPH Indication: S/P Central Line Insertion Technique: Single frontal view of the chest was obtained Comparison: DI CHEST,SINGLE VIEW on DOS: 04/26/25, DI CHEST,SINGLE VIEW on DOS: 04/25/25, DI CHEST,SINGLE VIEW on DOS: 04/25/25 FINDINGS: Lines and Tubes: Right IJ approach central venous catheter terminating over the mid SVC. Lungs: Interstitial and hazy opacities of bilateral lungs with obscuration of bilateral hemidiaphragm. No pneumothorax. Cardiomediastinal contours: Mild cardiomegaly with mild atherosclerotic calcification and uncoiling of the aorta. IMPRESSION: Additional hazy opacities of bilateral lungs may represent pulmonary edema/ multifocal pneumonia ; relatively unchanged from prior imaging. Small bilateral pleural effusions ; slightly worsened of the right. Interval placement of a right IJ approach central venous catheter in satisfactory position.
[2025-04-28] VITALS (31 sets, daily range): BP systolic 87–125; BP diastolic 47–64; PULSE 65–77; RESP 14–26; O2SAT 90–98
[2025-04-28 02:33] LABS: MEAN PLATELET VOLUME 8.1 FL (7.4-10.4); RED CELL DISTRIBUTION WIDTH 15.7 % (11.5-14.5)
[2025-04-28 02:50] LABS: CREATININE 2.66 MG/DL (0.60-1.10); TOTAL CARBON DIOXIDE 26.4 MMOL/L (24-32); eCRCL 28 ML/MIN; eGFR 24 ML/MIN
[2025-04-28 03:00] LABS: PHOSPHORUS 5.2 MG/DL (2.3-4.5)
[2025-04-28 03:34] LABS: BANDS% (MANUAL) 1.0 % (0-10); LYMPHOCYTES % (MANUAL) 3.0 % (21-51); METAMYLEOCYTES% (MANUAL) 1.0 % (0-0); MONOCYTES % (MANUAL) 9.0 % (2-12); NEUTROPHILS % (MANUAL) 86.0 % (42-75)
[2025-04-28 03:35] LABS: PLATELET ESTIMATE NORMAL
[2025-04-28 08:44] LABS: LEUKOCYTE ESTERASE ,URINE NEGATIVE (Neg); NITRITES, URINE NEGATIVE (Neg); OCCULT BLOOD,URINE TRACE-INTACT (Neg); UA COLLECTION TYPE NON-SPECIFIED
[2025-04-28 08:46] LABS: CREATININE,URINE RANDOM 26.0 MG/DL; UA UREA RANDOM 426.0 MG/DL
[2025-04-28 08:55] LABS: SQUAMOUS EPITHELIAL CELL,UR NONE SEEN /LPF (FEW)
[2025-04-28] MEDS ORDERED: TRAZ-251 PO (10:18)
[2025-04-28] MEDS ORDERED: ATOR10TA PO (10:18)
--- NOTE | 2025-04-28 12:41 | PROGRESS NOTE ---
Subjective Subjective Patient was seen and examined at the bedside. Patient is mildly altered and not able to have a conversation. He is on restraints as he was agitated today afternoon. Reason for visit: Pulmonary critical care follow-up Reviewed: Care Plan, H&P, Labs, Radiology Review of Systems Changes from previous H/P or p: No Changes Daily Progress Note Exam Vitals Vital Signs Date Time Temp Pulse Resp B/P (MAP) Pulse Ox O2 Delivery O2 Flow Rate FiO2 04/28/25 12:00 98.4 74 22 104/55 (71) 92 Nasal Cannula 1.0 04/28/25 08:26 28 Result Diagram: 04/28/25 0140 04/28/25 0140 Exam General: Sleeping and in no distress. HEENT: significant pallor present, icterus present, moist mucous membranes Neck: No masses and tenderness Resp:L significantly labored. Decreased breath sounds in both bases, worse on the left Cardiovascular: Regular Rate and rhythm, normal S1 and S2 without murmur, rub or gallop Abdomen: Slightly distended, soft and nontender, no organomegaly, no guarding and rigidity, bowel sounds present Neuro: No focal weakness in the upper and lower limb muscles, power of the muscles 4/5 bilateral upper and lower extremities, normal reflexes bilaterally. Cranial nerves intact Extremities: No cyanosis,clubbing or edema Skin: Warm and Dry Psych: Calm and cooperative at the time of my visit. Results Coagulation Studies Laboratory Tests Test 04/27/25 04:24 Prothrombin Time 18.5 SECONDS (9.0-12.0) H INR International Normalized Ratio 1.9 INR Activated Partial Thromboplast Time 44 SECONDS (22-32) H Coagulation Comments VTE VTE Risk Score VTE Risk Score Reference Ranges: Score 0-1 = Low Risk (Aggressive mobilization; early ambulation; no VTE prophylaxis required) Score 2: Moderate Risk (Intermittent/Pneumatic Compression Device OR Lovenox/Heparin/Coumadin) Score 3-4: High Risk (Intermittent/Pneumatic Compression Device AND Lovenox/Heparin/Coumadin) Score > or = 5: Highest Risk (Intermittent/Pneumatic Compression Device AND Lovenox/Heparin/Coumadin) Assessment/Plan Assessment 64-year-old male patient initially admitted for painless jaundice, found to have portal vein thrombosis and treated with enoxaparin. During hospitalization the patient developed confusion, cough and respiratory distress, chest x-ray showed extensive left side effusion. Plan Gram-negative manny sepsis: Identification and sensitivities still pending: On cefepime. Metronidazole and levofloxacin were discontinued. Sepsis secondary to pneumonia, most likely community-acquired Left chest empyema based on pleural fluid analysis Decompensated liver cirrhosis 2/2 chronic hepatitis-C, Child-Aguayo Class C: Awaiting transferred to [place]. Transaminitis: Escalating. Active hepatitis-C and possible hepatitis-B as well Possible Portal vein thrombosis on ultrasound Portacaval, retroperitoneal lymphadenopathy - possible inflammatory/neoplasm Possible neoplastic process ongoing Extensive left side pleural effusion Acute kidney injury, possibly due to vasomotor nephropathy: BUN creatinine 87/2.66. Nephrology consulted. Methamphetamine use disorder Moderate malnutrition Type 2 diabetes mellitus: Serum glucose control target 140-180 mg/dL Hypertension - well-controlled Malnutrition: NG tube placed and we will initiate tube feedings via NG tube. Agitation: He is calm on Precedex 1.5 mcg/kg per hour and p.r.n. Valium. We need to try to wean off Precedex and continue with p.r.n. Valium. Code Status: Full code DVT prophylaxis: Enoxaparin Analgesia/sedation: Morphine/Dilaudid Line/tube: PIV GI prophylaxis: Pantoprazole Nutrition: Carb controlled diet Prognosis: Guarded Disposition: Continue medical treatment. Patient needs to be transferred for a higher level of care facility. Expected Outcome/Goals Expected Outcomes/Goals: Meet minimum 75% estimated protein and energy needs with diet advancement, wt maintenance, bowel regularity, skin integrity, BG 80-180 mg/dL MICHELLE PETERSEN MD Apr 28, 2025 12:40
[2025-04-28] MEDS ORDERED: DEXTROSE 15 GM of carb/4 tabs (each vial/BOTTLE has 4 tablets) NG PRN ×2 (15:09)
[2025-04-28] MEDS ORDERED: acetaminophen 325mg/10.15ml oral unit dose solution NG PRN (15:09)
[2025-04-28] MEDS ORDERED: HYDROcodone/acetaminophen 7.5MG/325MG per 15ml UD CUP NG PRN (15:10)
[2025-04-28] MEDS ORDERED: mag hydrox/Alum hydrox/simeth 30ml oral suspension NG PRN (15:11)
--- NOTE | 2025-04-28 15:13 | PROGRESS NOTE ---
Progress Note Dictate Providers to CC ~ Antibiotic Ordered?: N/A Subjective Subjective UOP is improved, some delirium has sitter and restraints Objective Vitals Vital Signs Date Time Temp Pulse Resp B/P (MAP) Pulse Ox O2 Delivery O2 Flow Rate FiO2 04/28/25 14:05 102/57 04/28/25 14:00 74 23 93 Nasal Cannula 1.0 04/28/25 12:00 98.4 04/28/25 08:26 28 Disoriented today RRR w/o murmur, no JVD CTAB, no wheezes +BS, NT Trace edema Lab Results: 04/28/25 0140 04/28/25 0140 Coagulation Studies Laboratory Tests Test 04/27/25 04:24 Prothrombin Time 18.5 SECONDS (9.0-12.0) H INR International Normalized Ratio 1.9 INR Activated Partial Thromboplast Time 44 SECONDS (22-32) H Coagulation Comments Other Results I & O 04/28/25 07:00 Intake Total 2034 ml Output Total 7600 ml Balance -5566 ml Intake Oral 240 ml IV Total 1753 ml Other 41 ml Output Urine Total 7600 ml Problem\Assessment\Plan Problems/Diagnosis: (1) LUKE (acute kidney injury) Assessment & Plan: Urine output is improving, negative fluid balance today, monitor for post ATN polyuria, and assess volume frequently, does not appear to be HRS, no emergent need for renal replacement therapy, urine studies to guide IVF management daily He could benefit from palliative care consultation as well. (2) Hyperkalemia Assessment & Plan: Continue to monitor daily, medical management, may give Lokelma 10 Gm daily if above 5.5 (3) Cirrhosis of liver Assessment & Plan: Cirrhosis secondary to chronic hepatitis-C, Child-Aguayo Class C, Possible associated hepatitis-B? Portacaval, retroperitoneal lymphadenopathy - possible inflammatory or may be neoplasm related ISABELLE MCINTOSH III DO Apr 28, 2025 15:13
--- NOTE | 2025-04-28 16:22 | PROGRESS NOTE- Residence ---
Progress Note - Resident Providers to CC Resident Creating Document: AIDA MASON RES ~ Antibiotic Timeout Antibiotic Ordered?: Yes Subjective The patient was seen at CICU, he was somnolent and agitated, restraints and sitter in place. His acute decompensated liver cirrhosis secondary to hepatitis-C. He remains decompensated and is awaiting transfer to [facility]. Objective Vital Signs Date Time Temp Pulse Resp B/P (MAP) Pulse Ox O2 Delivery O2 Flow Rate FiO2 04/28/25 15:00 74 22 101/51 (68) 94 Nasal Cannula 1.0 04/28/25 12:00 98.4 04/28/25 08:26 28 General: Somnolent, unable to communicate HEENT: Conjunctiva pale, dry mucous membrane Neck: Supple without masses and tenderness. Resp: Unlabored. Lungs clear to auscultation bilaterally. Heart: Regular Rate and rhythm, normal S1 and S2 without murmur, rub or gallop. Abdomen: Slightly distended, bowel sounds present no rigidity Extremities: No cyanosis,clubbing or edema. Skin: Warm and Dry. Result Diagram: 04/28/25 0140 04/28/25 0140 Coagulation Studies Laboratory Tests Test 04/27/25 04:24 Prothrombin Time 18.5 SECONDS (9.0-12.0) H INR International Normalized Ratio 1.9 INR Activated Partial Thromboplast Time 44 SECONDS (22-32) H Coagulation Comments Advance Care Planning Advanced Care plannin - 30 Minutes Assessment Assessment 64-year-old male patient initially admitted for painless jaundice, found to have portal vein thrombosis and treated with enoxaparin. During hospitalization the patient developed confusion, cough and respiratory distress, chest x-ray showed extensive left side effusion. Plan Plan Sepsis present on admission Source; 2/2 community-acquired pneumonia; left sided empyema Gram-negative manny sepsis, sensitivity still pending On cefepime Levofloxacin and metronidazole discontinued today On Feliz-Synephrine drip Acute decompensated liver cirrhosis 2/2 chronic hepatitis-C, Child-Aguayo Class C presented with jaundice - 4 days prior to admission Transaminitis; Escalating Active hepatitis-C and possible hepatitis-B as well Possible Portal vein thrombosis on ultrasound Portacaval, retroperitoneal lymphadenopathy - possible inflammatory/neoplasm Possible neoplastic process ongoing Managed per ICU team Awaiting transfer to [place] Acute kidney injury, likely ATN Urine output improving; negative fluid balance today Monitor volume status regularly Nephrology onboard Methamphetamine use disorder Sober for the last 2 months, currently living at [facility] UA screen neg for meth, positive for cannabinoids Moderate malnutrition Serum albumin 2.4 Dietitian on board; NG tube placed, tube feeding via NG tube Type 2 diabetes mellitus Serum glucose control target 140-180 mg/dL Hemoglobin A1c is 7.5 Hyperglycemia/hypoglycemia protocol in place Carb controlled diet Hypertension - hypotensive due to sepsis Hold losartan Code Status: Full code DVT prophylaxis: Enoxaparin Analgesia/sedation: Morphine/Dilaudid Line/tube: PIV GI prophylaxis: Pantoprazole Nutrition: Carb controlled diet Prognosis: Guarded Disposition: Continue medical treatment; awaiting transferred to [facility] Aida Mason Internal Medicine Resident, PGY-3 Date of Service: Apr 28, 2025 Billing Provider: WANDA ADAN DO Common Visit Codes: [id number] INP/OBS CARE(HIGH) AIDA MASON, RES Apr 28, 2025 16:22 AWNDA ADAN DO Apr 28, 2025 17:14
[2025-04-28] MEDS: insulin regular, human U-100 10ml vial - multi-dose SQ SCH (20:00)
[2025-04-29] VITALS (30 sets, daily range): BP systolic 99–121; BP diastolic 48–65; PULSE 74–79; RESP 13–27; O2SAT 92–100
[2025-04-29 01:47] LABS: MEAN PLATELET VOLUME 7.7 FL (7.4-10.4); RED CELL DISTRIBUTION WIDTH 16.5 % (11.5-14.5)
[2025-04-29 02:01] LABS: CREATININE 2.55 MG/DL (0.60-1.10); TOTAL CARBON DIOXIDE 27.2 MMOL/L (24-32); eCRCL 29 ML/MIN; eGFR 25 ML/MIN
[2025-04-29 02:05] LABS: PHOSPHORUS 5.2 MG/DL (2.3-4.5)
[2025-04-29] MEDS: dexmedetomidin/NS 400mcg/100ml 100 ML IV ONE (04:50)
[2025-04-29 05:17] LABS: HBSAG SCREEN Negative (Negative)
--- NOTE | 2025-04-29 07:21 | PROGRESS NOTE ---
Progress Note Dictate Providers to CC ~ Antibiotic Ordered?: N/A Subjective Subjective doing well overnight, change in pressers Objective Vitals Vital Signs Date Time Temp Pulse Resp B/P (MAP) Pulse Ox O2 Delivery O2 Flow Rate FiO2 04/29/25 07:18 16 04/29/25 07:00 77 111/62 (78) 97 Nasal Cannula 3.0 04/29/25 02:15 100.2 04/28/25 23:10 32 RRR w SM, no JVD CTAB, no wheezes +BS, NT 1+ edema Lab Results: 04/29/25 0140 04/29/25 0140 Coagulation Studies Laboratory Tests Test 04/27/25 04:24 Prothrombin Time 18.5 SECONDS (9.0-12.0) H INR International Normalized Ratio 1.9 INR Activated Partial Thromboplast Time 44 SECONDS (22-32) H Coagulation Comments Other Results I & O 04/29/25 07:00 Intake Total 2399 ml Output Total 3210 ml Balance -811 ml IV Total 1774 ml Tube Feeding 625 ml Output Urine Total 3210 ml Problem\Assessment\Plan Problems/Diagnosis: (1) LUKE (acute kidney injury) Assessment & Plan: Urine output is improving, negative fluid balance today - 811, monitor for post ATN polyuria, and assess volume frequently, does not appear to be HRS, no emergent need for renal replacement therapy, urine studies to guide IVF management daily He could benefit from palliative care consultation as well. (2) Hyperkalemia Assessment & Plan: Continue to monitor daily, medical management, may give Lokelma 10 Gm daily if above 5.5 (3) Cirrhosis of liver Assessment & Plan: Cirrhosis secondary to chronic hepatitis-C, Child-Aguayo Class C, Possible associated hepatitis-B? Portacaval, retroperitoneal lymphadenopathy - possible inflammatory or may be neoplasm related ISABELLE MCINTOSH III DO Apr 29, 2025 07:21
[2025-04-29] MEDS ORDERED: cefepime inj. 0.5 GM in normal saline 100ml IV soln 105 ML IV SCH (08:00)
[2025-04-29] MEDS: CEFEPIME 2gm in D5W 50mL 50 ML IV SCH (08:07)
[2025-04-29 08:44] LABS: CREATININE,URINE RANDOM 19.0 MG/DL; LEUKOCYTE ESTERASE ,URINE NEGATIVE (Neg); NITRITES, URINE NEGATIVE (Neg); OCCULT BLOOD,URINE SMALL (Neg); UA UREA RANDOM 332.0 MG/DL
[2025-04-29 08:49] LABS: UA COLLECTION TYPE NON-SPECIFIED
[2025-04-29 08:53] LABS: MUCUS STRANDS FEW /LPF (Neg); SQUAMOUS EPITHELIAL CELL,UR NONE SEEN /LPF (FEW)
[2025-04-29] MEDS: rifaximin 20mg/ml oral suspension 60 ML BOTTLE NG SCH (09:00)
[2025-04-29] MEDS: lactulose 20gm/30ml cup NG SCH (09:24)
[2025-04-29 10:32] LABS: ABG BASE EXCESS 0.7 mmol/L (-2.0-3.0); ABG HCO3 23.7 mmol/L (21.0-28.0); ABG OXYGEN SATURATION 95.9 % (94.0-98.0); ABG PCO2 (T) 36.2 mmHg (35.0-48.0); ABG PH (T) 7.442 (7.350-7.450); ABG PO2 (T) 96.0 mmHg (83.0-108.0); ALLEN'S TEST Modified; FCOHb 0.9 % (0.5-1.5); FHHb 4.1 % (0.0-5.0); FIO2 32.0 mmHg/%; FLOW 3 L/min; FMetHb 0.0 % (0.0-1.5); FO2Hb 95.0 % (94.0-98.0); MODE OXYGENATOR; PATIENT TEMPERATURE 39.4; TOTAL HEMOGLOBIN 12.2 G/dl (13.5-17.5)
--- NOTE | 2025-04-29 12:02 | PROGRESS NOTE ---
Subjective Subjective The patient was seen at CICU, he was somnolent and agitated, restraints and sitter in place. His acute decompensated liver cirrhosis secondary to hepatitis-C. He remains decompensated and is awaiting transfer [place] [facility] Reason for visit: Pulmonary critical care follow-up Reviewed: Care Plan, H&P, Labs, Radiology Review of Systems Changes from previous H/P or p: No Changes Daily Progress Note Exam Vitals Vital Signs Date Time Temp Pulse Resp B/P (MAP) Pulse Ox O2 Delivery O2 Flow Rate FiO2 04/29/25 11:00 100.8 76 25 103/52 (69) 99 Nasal Cannula 3.0 04/29/25 10:24 32 Result Diagram: 04/29/25 0140 04/29/25 0140 Exam General: Sleeping and moaning and groaning. HEENT: significant pallor present, icterus present, moist mucous membranes Neck: No masses and tenderness Resp:L significantly labored. Decreased breath sounds in both bases, worse on the left Cardiovascular: Regular Rate and rhythm, normal S1 and S2 without murmur, rub or gallop Abdomen: Slightly distended, soft and nontender, no organomegaly, no guarding and rigidity, bowel sounds present Neuro: No focal weakness in the upper and lower limb muscles, power of the muscles 4/5 bilateral upper and lower extremities, normal reflexes bilaterally. Cranial nerves intact Extremities: No cyanosis,clubbing or edema Skin: Warm and Dry Psych: Calm and cooperative at the time of my visit. Results Coagulation Studies Laboratory Tests Test 04/27/25 04:24 Prothrombin Time 18.5 SECONDS (9.0-12.0) H INR International Normalized Ratio 1.9 INR Activated Partial Thromboplast Time 44 SECONDS (22-32) H Coagulation Comments VTE VTE Risk Score VTE Risk Score Reference Ranges: Score 0-1 = Low Risk (Aggressive mobilization; early ambulation; no VTE prophylaxis required) Score 2: Moderate Risk (Intermittent/Pneumatic Compression Device OR Lovenox/Heparin/Coumadin) Score 3-4: High Risk (Intermittent/Pneumatic Compression Device AND Lovenox/Heparin/Coumadin) Score > or = 5: Highest Risk (Intermittent/Pneumatic Compression Device AND Lovenox/Heparin/Coumadin) Assessment/Plan Assessment 64-year-old male patient initially admitted for painless jaundice, found to have portal vein thrombosis and treated with enoxaparin. During hospitalization the patient developed confusion, cough and respiratory distress, chest x-ray showed extensive left side effusion. Plan Gram-negative manny sepsis: Due to Haemophilus parainfluenza. :On cefepime. Metronidazole and levofloxacin were discontinued. Sepsis secondary to pneumonia, most likely community-acquired Left chest empyema based on pleural fluid analysis Decompensated liver cirrhosis 2/2 chronic hepatitis-C, Child-Aguayo Class C: Awaiting transferred to [place]. Transaminitis: Escalating. Start lactulose and rifaximin. Active hepatitis-C and possible hepatitis-B as well Possible Portal vein thrombosis on ultrasound Portacaval, retroperitoneal lymphadenopathy - possible inflammatory/neoplasm Possible neoplastic process ongoing Extensive left side pleural effusion Acute kidney injury, possibly due to vasomotor nephropathy: BUN creatinine 87/2.66. Nephrology consulted. Methamphetamine use disorder Moderate malnutrition Type 2 diabetes mellitus: Serum glucose control target 140-180 mg/dL Hypertension - well-controlled Malnutrition: NG tube placed and we will initiate tube feedings via NG tube. Agitation: He is calm on Precedex 1.5 mcg/kg per hour and p.r.n. Valium. We need to try to wean off Precedex and continue with p.r.n. Valium. Code Status: Full code DVT prophylaxis: Enoxaparin Analgesia/sedation: Morphine/Dilaudid Line/tube: PIV GI prophylaxis: Pantoprazole Nutrition: Carb controlled diet Prognosis: Guarded Disposition: Continue medical treatment. Patient needs to be transferred for a higher level of care facility. Expected Outcome/Goals Expected Outcomes/Goals: Meet minimum 75% estimated protein and energy needs with diet advancement, TF tolerance, wt maintenance, bowel regularity, skin integrity, BG 80-180 mg/dL MICHELLE PETERSEN MD Apr 29, 2025 12:02
--- NOTE | 2025-04-29 13:50 | PROGRESS NOTE- Residence ---
Progress Note - Resident Providers to CC Resident Creating Document: EMILEE MASON RES ~ Antibiotic Timeout Antibiotic Ordered?: Yes Subjective The patient was seen at CICU, he is still somnolent and agitated, restraints and sitter in place. His acute decompensated liver cirrhosis secondary to hepatitis-C. He remains decompensated and is awaiting transfer to [facility]. Objective Vital Signs Date Time Temp Pulse Resp B/P (MAP) Pulse Ox O2 Delivery O2 Flow Rate FiO2 04/29/25 13:00 101.3 79 27 103/56 (72) 96 Nasal Cannula 3.0 04/29/25 10:24 32 General: Somnolent, unable to communicate HEENT: Conjunctiva pale, dry mucous membrane Neck: Supple without masses and tenderness. Resp: Unlabored. Lungs clear to auscultation bilaterally. Heart: Regular Rate and rhythm, normal S1 and S2 without murmur, rub or gallop. Abdomen: Slightly distended, bowel sounds present no rigidity Extremities: No cyanosis,clubbing or edema. Skin: pale, yellowish, and dry Result Diagram: 04/29/25 0140 04/29/25 0140 Coagulation Studies Laboratory Tests Test 04/27/25 04:24 Prothrombin Time 18.5 SECONDS (9.0-12.0) H INR International Normalized Ratio 1.9 INR Activated Partial Thromboplast Time 44 SECONDS (22-32) H Coagulation Comments Advance Care Planning Advanced Care plannin - 30 Minutes Assessment Assessment 64-year-old male patient initially admitted for painless jaundice, found to have portal vein thrombosis and treated with enoxaparin. During hospitalization the patient developed confusion, cough and respiratory distress, chest x-ray showed extensive left side effusion. Plan Plan Sepsis present on admission, Resolving Source; 2/2 community-acquired pneumonia; left sided empyema Gram-negative manny sepsis, sensitivity still pending On cefepime Levofloxacin and metronidazole discontinued today Acute decompensated liver cirrhosis 2/2 chronic hepatitis-C, Child-Aguayo Class C presented with jaundice - 4 days prior to admission Transaminitis; Escalating Active hepatitis-C and possible hepatitis-B as well Possible Portal vein thrombosis on ultrasound Portacaval, retroperitoneal lymphadenopathy - possible inflammatory/neoplasm Possible neoplastic process ongoing Managed per ICU team Awaiting transfer to [place] Acute kidney injury, likely ATN Urine output improving; negative fluid balance today Monitor volume status regularly Nephrology onboard Methamphetamine use disorder Sober for the last 2 months, currently living at [facility] UA screen neg for meth, positive for cannabinoids Moderate malnutrition Serum albumin 2.4 Dietitian on board; NG tube placed, tube feeding via NG tube Type 2 diabetes mellitus Serum glucose control target 140-180 mg/dL Hemoglobin A1c is 7.5 Hyperglycemia/hypoglycemia protocol in place Carb controlled diet Hypertension - hypotensive due to sepsis Hold losartan Code Status: Full code DVT prophylaxis: Enoxaparin Analgesia/sedation: Morphine/Dilaudid Line/tube: PIV GI prophylaxis: Pantoprazole Nutrition: Carb controlled diet Prognosis: Guarded Disposition: Continue medical treatment; awaiting transferred to [facility] Emilee Mason Internal Medicine Resident, PGY-3 Date of Service: Apr 29, 2025 Billing Provider: MYLES TREJO MD Common Visit Codes: [id number] INP/OBS CARE(HIGH) EMILEE MASON, RES Apr 29, 2025 13:50 MYLES TREJO MD Apr 30, 2025 21:25
[2025-04-30] VITALS (25 sets, daily range): BP systolic 83–147; BP diastolic 49–67; PULSE 69–111; RESP 16–28; O2SAT 92–98
[2025-04-30 02:53] LABS: MEAN PLATELET VOLUME 7.5 FL (7.4-10.4); RED CELL DISTRIBUTION WIDTH 17.1 % (11.5-14.5)
[2025-04-30 03:06] LABS: CREATININE 2.39 MG/DL (0.60-1.10); TOTAL CARBON DIOXIDE 28.8 MMOL/L (24-32); eCRCL 31 ML/MIN; eGFR 27 ML/MIN
[2025-04-30 03:10] LABS: PHOSPHORUS 3.6 MG/DL (2.3-4.5)
[2025-04-30] MEDS ORDERED: potassium Cl 40MEQ/270ML bag 270 ML IV PRN (03:35)
[2025-04-30] MEDS ORDERED: magnesium sulf-water 2g/50mL 50 ML IV PRN (03:35)
[2025-04-30] MEDS ORDERED: magnesium sulf-water 4G/100mL 100 ML IV PRN (03:35)
[2025-04-30] MEDS: potassium Cl 20mEq/100mL bag 100 ML IV ONE ×2 (04:17→05:09)
[2025-04-30] MEDS: magnesium hydroxide 30ml (MOM) UD suspension NG PRN (07:35)
[2025-04-30] MEDS: potassium Cl 40MEQ/1/2NS 520ml 520 ML IV PRN (07:40)
[2025-04-30 09:31] LABS: CREATININE 2.52 MG/DL (0.60-1.10); TOTAL CARBON DIOXIDE 30.2 MMOL/L (24-32); eCRCL 29 ML/MIN; eGFR 26 ML/MIN
[2025-04-30 09:47] LABS: PHOSPHORUS 3.5 MG/DL (2.3-4.5)
[2025-04-30] MEDS: albumin (Human) 5% 250ml 250 ML IV SCH (12:31)
[2025-04-30] MEDS: albumin (human) 25% 100ml IV 400 ML IV ONE (12:32)
--- NOTE | 2025-04-30 13:18 | PROGRESS NOTE ---
Subjective Subjective The patient was seen at CICU, he is still somnolent and agitated, restraints and sitter in place. His acute decompensated liver cirrhosis secondary to hepatitis-C. He remains decompensated and [place] [facility] [place] Reason for visit: Pulmonary critical care follow-up Reviewed: Care Plan, H&P, Labs, Radiology Review of Systems Changes from previous H/P or p: No Changes Daily Progress Note Exam Vitals Vital Signs Date Time Temp Pulse Resp B/P (MAP) Pulse Ox O2 Delivery O2 Flow Rate FiO2 04/30/25 12:30 26 04/30/25 11:08 109/63 04/30/25 09:07 100.4 74 94 Nasal Cannula 3.0 04/29/25 10:24 32 Result Diagram: 04/30/2521404/30/25 0800 Exam General: Sleeping and moaning and groaning. HEENT: significant pallor present, icterus present, moist mucous membranes Neck: No masses and tenderness Resp:L significantly labored. Decreased breath sounds in both bases, worse on the left Cardiovascular: Regular Rate and rhythm, normal S1 and S2 without murmur, rub or gallop Abdomen: Slightly distended, soft and nontender, no organomegaly, no guarding and rigidity, bowel sounds present Neuro: No focal weakness in the upper and lower limb muscles, power of the muscles 4/5 bilateral upper and lower extremities, normal reflexes bilaterally. Cranial nerves intact Extremities: No cyanosis,clubbing or edema Skin: Warm and Dry Psych: Calm and cooperative at the time of my visit. Results Coagulation Studies Laboratory Tests Test 04/27/25 04:24 Prothrombin Time 18.5 SECONDS (9.0-12.0) H INR International Normalized Ratio 1.9 INR Activated Partial Thromboplast Time 44 SECONDS (22-32) H Coagulation Comments VTE VTE Risk Score VTE Risk Score Reference Ranges: Score 0-1 = Low Risk (Aggressive mobilization; early ambulation; no VTE prophylaxis required) Score 2: Moderate Risk (Intermittent/Pneumatic Compression Device OR Lovenox/Heparin/Coumadin) Score 3-4: High Risk (Intermittent/Pneumatic Compression Device AND Lovenox/Heparin/Coumadin) Score > or = 5: Highest Risk (Intermittent/Pneumatic Compression Device AND Lovenox/Heparin/Coumadin) Assessment/Plan Assessment 64-year-old male patient initially admitted for painless jaundice, found to have portal vein thrombosis and treated with enoxaparin. During hospitalization the patient developed confusion, cough and respiratory distress, chest x-ray showed extensive left side effusion. Plan Haemophilus parainfluenza sepsis :On cefepime. Metronidazole and levofloxacin were discontinued. Sepsis secondary to pneumonia, most likely community-acquired Left chest empyema based on pleural fluid analysis Decompensated liver cirrhosis 2/2 chronic hepatitis-C, Child-Aguayo Class C: Awaiting transferred to [place]. Transaminitis: Escalating. Might benefit from steroids. We will start methylprednisolone 40 mg IV Q 12 hours. Encephalopathy: Continue lactulose and rifaximin. Active hepatitis-C and possible hepatitis-B as well Possible Portal vein thrombosis on ultrasound: On Lovenox 80 mg subcutaneously q.day. Portacaval, retroperitoneal lymphadenopathy - possible inflammatory/neoplasm Possible neoplastic process ongoing Extensive left side pleural effusion Acute kidney injury, possibly due to vasomotor nephropathy: BUN creatinine 103/2.52. Nephrology consulted and following. Methamphetamine use disorder Moderate malnutrition Type 2 diabetes mellitus: Serum glucose control target 140-180 mg/dL Hypertension - well-controlled Malnutrition: NG tube placed and currently on vital AF 1.2 at 60 mL/hour. Agitation: He is calm on Precedex 1.5 mcg/kg per hour and p.r.n. Valium. We need to try to wean off Precedex and continue with p.r.n. Valium. Code Status: Full code DVT prophylaxis: Enoxaparin Analgesia/sedation: Morphine/hydrocodone/oxycodone Line/tube: PIV GI prophylaxis: Pantoprazole Nutrition: Carb controlled diet Prognosis: Guarded Disposition: Continue medical treatment. Patient needs to be transferred for a higher level of care facility. Overall prognosis: Guarded Critical care time in excess of 35 minutes. Expected Outcome/Goals Expected Outcomes/Goals: Meet minimum 75% estimated protein and energy needs with diet advancement, TF tolerance, wt maintenance, bowel regularity, skin integrity, BG 80-180 mg/dL MICHELLE PETERSEN MD Apr 30, 2025 13:18
[2025-04-30 17:36] LABS: LEUKOCYTE ESTERASE ,URINE NEGATIVE (Neg); NITRITES, URINE NEGATIVE (Neg); OCCULT BLOOD,URINE MODERATE (Neg)
[2025-04-30 17:46] LABS: UA COLLECTION TYPE FOLEY CATH
[2025-04-30 17:47] LABS: SQUAMOUS EPITHELIAL CELL,UR NONE SEEN /LPF (FEW)
[2025-04-30 17:49] LABS: AMORPHOUS URATES 1+
--- NOTE | 2025-04-30 18:03 | PROGRESS NOTE- Residence ---
Progress Note - Resident Providers to CC Resident Creating Document: EMILEE MASON RES ~ Antibiotic Timeout Antibiotic Ordered?: Yes Subjective The patient was seen at CICU. The patient's condition is consistently deteriorating. Liver function continues to worsen. Neurologically, he is declining; he now only moans in opens his eyes to sternal rub. The ICU team is planning a physician to physician discussion with [facility] to determine the next steps, including possible transition to comfort care. The patient has no social support, and no family members have visited. Objective Vital Signs Date Time Temp Pulse Resp B/P (MAP) Pulse Ox O2 Delivery O2 Flow Rate FiO2 04/30/25 17:00 100.8 69 25 129/59 (82) 92 Nasal Cannula 4.0 04/29/25 10:24 32 General: Somnolent, unable to communicate HEENT: Conjunctiva pale, dry mucous membrane Neck: Supple without masses and tenderness. Resp: Unlabored. Lungs clear to auscultation bilaterally. Heart: Regular Rate and rhythm, normal S1 and S2 without murmur, rub or gallop. Abdomen: Slightly distended, bowel sounds present no rigidity Extremities: No cyanosis,clubbing or edema. Skin: pale, yellowish, and dry Result Diagram: 04/30/25 0215 04/30/25 0800 Coagulation Studies Laboratory Tests Test 04/27/25 04:24 Prothrombin Time 18.5 SECONDS (9.0-12.0) H INR International Normalized Ratio 1.9 INR Activated Partial Thromboplast Time 44 SECONDS (22-32) H Coagulation Comments Advance Care Planning Advanced Care plannin - 30 Minutes Assessment Assessment 64-year-old male patient initially admitted for painless jaundice, found to have portal vein thrombosis and treated with enoxaparin. During hospitalization the patient developed confusion, cough and respiratory distress, chest x-ray showed extensive left side effusion. Plan Plan Haemophilus influenzae sepsis, Resolving Source; 2/2 community-acquired pneumonia; left sided empyema Gram-negative manny sepsis, sensitivity still pending On cefepime Levofloxacin and metronidazole discontinued today Acute decompensated liver cirrhosis 2/2 chronic hepatitis-C, Child-Aguayo Class C Acute hepatic encephalopathy presented with jaundice - 4 days prior to admission Transaminitis; Escalating Active hepatitis-C and possible hepatitis-B as well Possible Portal vein thrombosis on ultrasound Portacaval, retroperitoneal lymphadenopathy - possible inflammatory/neoplasm Possible neoplastic process ongoing On lactulose and rifaximin On Lovenox 80 mg subcutaneously q.day. Managed per ICU team Awaiting transfer to [place] Acute kidney injury, likely ATN Urine output improving; negative fluid balance today Monitor volume status regularly Nephrology onboard Methamphetamine use disorder Sober for the last 2 months, currently living at [facility] UA screen neg for meth, positive for cannabinoids Moderate malnutrition Serum albumin 2.4 Dietitian on board; NG tube placed, tube feeding via NG tube Type 2 diabetes mellitus Serum glucose control target 140-180 mg/dL Hemoglobin A1c is 7.5 Hyperglycemia/hypoglycemia protocol in place Carb controlled diet Hypertension - hypotensive due to sepsis Hold losartan Code Status: Full code DVT prophylaxis: Enoxaparin Analgesia/sedation: Morphine/Dilaudid Line/tube: PIV GI prophylaxis: Pantoprazole Nutrition: Carb controlled diet Prognosis: Guarded Disposition: Continue medical treatment; awaiting transferred to [facility] [place] Emilee Mason Internal Medicine Resident, PGY-3 Date of Service: Apr 30, 2025 Billing Provider: MYLES TREJO MD Common Visit Codes: [id number] INP/OBS CARE(HIGH) EMILEE MASON, RES Apr 30, 2025 18:03 MYLES TREJO MD Apr 30, 2025 21:26
[2025-04-30 18:13] LABS: CREATININE,URINE RANDOM 112.0 MG/DL; UA UREA RANDOM 523.0 MG/DL
--- NOTE | 2025-04-30 18:16 | PROGRESS NOTE- Residence ---
Progress Note - Resident Providers to CC Resident Creating Document: SONU SOUZA RES ~ Antibiotic Timeout Antibiotic Ordered?: Yes Subjective The patient was seen at CICU, awaiting transferred to [facility] [place]. His kidney function shows improvement. We will continue IV fluids. Objective Vital Signs Date Time Temp Pulse Resp B/P (MAP) Pulse Ox O2 Delivery O2 Flow Rate FiO2 04/30/25 17:00 100.8 69 25 129/59 (82) 92 Nasal Cannula 4.0 04/29/25 10:24 32 Result Diagram: 04/30/25 0215 04/30/25 0800 General: Somnolent, unable to communicate HEENT: Conjunctiva pale, dry mucous membrane Neck: Supple without masses and tenderness. Resp: Unlabored. Lungs clear to auscultation bilaterally. Heart: Regular Rate and rhythm, normal S1 and S2 without murmur, rub or gallop. Abdomen: Slightly distended, bowel sounds present no rigidity Extremities: No cyanosis,clubbing or edema. Skin: pale, yellowish, and dry Coagulation Studies Laboratory Tests Test 04/27/25 04:24 Prothrombin Time 18.5 SECONDS (9.0-12.0) H INR International Normalized Ratio 1.9 INR Activated Partial Thromboplast Time 44 SECONDS (22-32) H Coagulation Comments Assessment Assessment Assessment This is a 64-year-old male patient with a history of methamphetamine use, hepatitis-C, cirrhosis, hypertension, type 2 diabetes mellitus initially admitted for painless jaundice, found to have portal vein thrombosis and treated with enoxaparin. During the admission patient developed respiratory distress secondary to left-sided pleural effusion and was transferred to ICU. The pleural effusion was tapped and about 800 cc of fluid was removed. Currently patient is on cefepime. He has a acute decompensated liver cirrhosis secondary to hepatitis-C. Awaiting transferred to [facility]. Patient developed LUKE secondary to hepatorenal syndrome. Initially dialysis was considered but later with improvement, the dialysis was put on hold. Patient has no social support. ICU team is discussing about transition to comfort care. Plan LUKE/ATN Initially it was thought to be HRS but later ruled out. Creatinine is stable, 2.5 today BUN 103, could be secondary to liver failure Urine output 1.84 mL per kg per hour Recommended increase in the free water. Urine electrolytes today pending Hypernatremia Hypokalemia Sodium 155-recommended increased free water [place] if hyperkalemia. Haemophilus influenzae Sepsis - Community-acquired pneumonia, left-sided empyema Patient is on cefepime Acute decompensated liver cirrhosis secondary to chronic hepatitis-C, Portal vein thrombosis Possible neoplasm On Lovenox 80 mg subQ daily On lactulose and rifaximin Type 2 DM Methamphetamine use disorder Sonu Souza M.D PGY2 Nephrology Resident Date of Service: Apr 30, 2025 Billing Provider: ISABELLE MCINTOSH III, PRAVAHIKA, RES Apr 30, 2025 18:16
[2025-04-30 18:17] LABS: OSMOLALITY UA 383 MOSM/K (50-1400); UA EOSINOPHILS NO EOS /HPF
[2025-04-30 18:37] LABS: CREATININE 3.19 MG/DL (0.60-1.10); TOTAL CARBON DIOXIDE 24.6 MMOL/L (24-32); eCRCL 23 ML/MIN; eGFR 20 ML/MIN
[2025-04-30 18:40] LABS: PHOSPHORUS 4.0 MG/DL (2.3-4.5)
[2025-04-30] MEDS: rifaximin 20mg/ml oral suspension 60 ML BOTTLE NG SCH (20:44)
[2025-05-01] VITALS (30 sets, daily range): BP systolic 79–146; BP diastolic 45–108; PULSE 80–155; RESP 15–28; O2SAT 91–99
[2025-05-01] MEDS: insulin regular, human U-100 10ml vial - multi-dose SQ SCH (02:05)
[2025-05-01 05:07] LABS: MEAN PLATELET VOLUME 8.8 FL (7.4-10.4); RED CELL DISTRIBUTION WIDTH 18.0 % (11.5-14.5)
[2025-05-01 05:29] LABS: LEUKOCYTE ESTERASE ,URINE NEGATIVE (Neg); NITRITES, URINE NEGATIVE (Neg); OCCULT BLOOD,URINE SMALL (Neg)
[2025-05-01 05:31] LABS: UA COLLECTION TYPE FOLEY CATH
[2025-05-01 05:31] LABS: CREATININE 3.57 MG/DL (0.60-1.10); TOTAL CARBON DIOXIDE 25.7 MMOL/L (24-32); eCRCL 21 ML/MIN; eGFR 17 ML/MIN
[2025-05-01 05:38] LABS: PHOSPHORUS 4.6 MG/DL (2.3-4.5)
[2025-05-01 05:38] LABS: CREATININE,URINE RANDOM 77.0 MG/DL; UA UREA RANDOM 822.0 MG/DL
[2025-05-01 05:51] LABS: COARSE GRANULAR CAST 0-3 /LPF (NEGATIVE); MUCUS STRANDS FEW /LPF (Neg); SQUAMOUS EPITHELIAL CELL,UR FEW /LPF (FEW)
[2025-05-01 05:52] LABS: CELLULAR CAST 0-4 /LPF (NEGATIVE)
--- NOTE | 2025-05-01 10:05 | PROGRESS NOTE- Residence ---
Progress Note - Resident Providers to CC Resident Creating Document: SONU SOUZA RES ~ Antibiotic Timeout Antibiotic Ordered?: Yes Subjective The patient was seen at CICU, awaiting transferred to [facility] [place]. His ascites is getting worse today. His kidney function has also gotten worse. Awaiting transferred to [facility] [place] Objective Vital Signs Date Time Temp Pulse Resp B/P (MAP) Pulse Ox O2 Delivery O2 Flow Rate FiO2 05/01/25 08:00 100.6 98 19 142/77 (98) 95 Nasal Cannula 5.0 04/29/25 10:24 32 Result Diagram: 05/01/2543405/01/25434 General: Somnolent, unable to communicate HEENT: Conjunctiva pale, dry mucous membrane Neck: Supple without masses and tenderness. Resp: Unlabored. Lungs clear to auscultation bilaterally. Heart: Regular Rate and rhythm, normal S1 and S2 without murmur, rub or gallop. Abdomen: Slightly distended, bowel sounds present no rigidity Extremities: No cyanosis,clubbing or edema. Skin: pale, yellowish, and dry Coagulation Studies Laboratory Tests Test 04/27/25 04:24 Prothrombin Time 18.5 SECONDS (9.0-12.0) H INR International Normalized Ratio 1.9 INR Activated Partial Thromboplast Time 44 SECONDS (22-32) H Coagulation Comments Assessment Assessment Assessment This is a 64-year-old male patient with a history of methamphetamine use, hepatitis-C, cirrhosis, hypertension, type 2 diabetes mellitus initially admitted for painless jaundice, found to have portal vein thrombosis and treated with enoxaparin. During the admission patient developed respiratory distress secondary to left-sided pleural effusion and was transferred to ICU. The pleural effusion was tapped and about 800 cc of fluid was removed. Currently patient is on cefepime. He has a acute decompensated liver cirrhosis secondary to hepatitis-C. Awaiting transferred to [facility] [place]. Patient developed LUKE secondary to hepatorenal syndrome. Initially dialysis was considered but later with improvement, the dialysis was put on hold. Patient has no social support. ICU team is discussing about transition to comfort care. Plan LUKE likely prerenal Creatinine getting worse, 3.57 today compared to 2.52 yesterday BUN 113, could be secondary to liver failure Urine output 1.85 mL per kg per hour FeNa-0.3, Rina <15, Uosm-383, Fe urea 33.7-all indicating prerenal Plan Patient is currently on free water 150 mL q.6, increased to 200 mL q.4 Repeat BMP ordered at 2:00 p.m. If no improvement, we will started on D5W. Hypernatremia, hyperchloremia Sodium 155 -recommended increased free water -repeat BMP at 8:00 p.m., if improvement we will start on D5W Hyperphosphatemia Phosphorus 4.6 We will monitor Haemophilus influenzae Sepsis - Community-acquired pneumonia, left-sided empyema Patient is on cefepime Acute decompensated liver cirrhosis secondary to chronic hepatitis-C, Portal vein thrombosis Possible neoplasm Ammonia level 75 today. On Lovenox 80 mg subQ daily On lactulose and rifaximin AFP, tumor marker elevated Patient will possibly need a repeat ascitic tap. On methylprednisolone 62.5 b.i.d.. Type 2 DM Methamphetamine use disorder Sonu Souza M.D PGY2 Nephrology Resident Date of Service: May 01, 2025 Billing Provider: ISABELLE MCINTOSH III, PRAVAHIKA, RES May 01, 2025 10:05
[2025-05-01] MEDS: insulin regular, human U-100 10ml vial - multi-dose IV ONE (10:42)
--- NOTE | 2025-05-01 12:37 | RADIOLOGY REPORT ---
EXAM: DI CHEST,SINGLE VIEW Indication: pain Technique: Single frontal view of the chest was obtained Comparison: DI CHEST,SINGLE VIEW on DOS: 04/27/25, DI CHEST,SINGLE VIEW on DOS: 04/26/25, DI CHEST,SINGLE VIEW on DOS: 04/25/25, DI CHEST,SINGLE VIEW on DOS: 04/25/25, DI CHEST,TWO VIEWS on DOS: 04/23/25 FINDINGS: Lines and Tubes: Right central venous catheter tip projects over superior vena cava. Enteric tube tip projects over the expected region of the stomach. Lungs: Multifocal left lung consolidative opacities. Pleura: Trace right pleural effusion. Small left pleural effusion. No pneumothorax. Cardiomediastinal contours: Unremarkable Bones: No acute osseous abnormality. IMPRESSION: Interval placement of enteric tube with tip in appropriate position. Multifocal left lung consolidative opacities. Trace right pleural effusion. Small left pleural effusion.
[2025-05-01 14:43] LABS: CREATININE 3.44 MG/DL (0.60-1.10); TOTAL CARBON DIOXIDE 28.6 MMOL/L (24-32); eCRCL 21 ML/MIN; eGFR 18 ML/MIN
[2025-05-01 15:05] LABS: OSMOLALITY UA 400 MOSM/K (50-1400)
[2025-05-01 15:09] LABS: CREATININE,URINE RANDOM 145.0 MG/DL; UA UREA RANDOM 624.0 MG/DL
--- NOTE | 2025-05-01 17:46 | PROGRESS NOTE ---
Subjective Subjective The patient was seen at CICU, awaiting transferred to [facility] [place]. His ascites is getting worse today. His kidney function has also gotten worse. Not following commands and always moaning and groaning. Reason for visit: Pulmonary critical care follow-up Reviewed: Care Plan, H&P, Labs, Radiology Review of Systems Changes from previous H/P or p: No Changes Daily Progress Note Exam Vitals Vital Signs Date Time Temp Pulse Resp B/P (MAP) Pulse Ox O2 Delivery O2 Flow Rate FiO2 05/01/25 17:31 93 75 05/01/25 17:29 119 25 28 05/01/25 17:00 122/68 (86) Non-Rebreather 15.0 05/01/25 16:00 100.0 Result Diagram: 05/01/25 0435 05/01/25 1345 Exam General: Sleeping and moaning and groaning. HEENT: significant pallor present, icterus present, moist mucous membranes Neck: No masses and tenderness Resp:L significantly labored. Decreased breath sounds in both bases, worse on the left Cardiovascular: Regular Rate and rhythm, normal S1 and S2 without murmur, rub or gallop Abdomen: Slightly distended, soft and nontender, no organomegaly, no guarding and rigidity, bowel sounds present Neuro: No focal weakness in the upper and lower limb muscles, power of the muscles 4/5 bilateral upper and lower extremities, normal reflexes bilaterally. Cranial nerves intact Extremities: No cyanosis,clubbing or edema Skin: Warm and Dry Psych: Calm and cooperative at the time of my visit. Results Coagulation Studies Laboratory Tests Test 04/27/25 04:24 Prothrombin Time 18.5 SECONDS (9.0-12.0) H INR International Normalized Ratio 1.9 INR Activated Partial Thromboplast Time 44 SECONDS (22-32) H Coagulation Comments VTE VTE Risk Score VTE Risk Score Reference Ranges: Score 0-1 = Low Risk (Aggressive mobilization; early ambulation; no VTE prophylaxis required) Score 2: Moderate Risk (Intermittent/Pneumatic Compression Device OR Lovenox/Heparin/Coumadin) Score 3-4: High Risk (Intermittent/Pneumatic Compression Device AND Lovenox/Heparin/Coumadin) Score > or = 5: Highest Risk (Intermittent/Pneumatic Compression Device AND Lovenox/Heparin/Coumadin) Assessment/Plan Plan Haemophilus parainfluenza sepsis :On cefepime. Metronidazole and levofloxacin were discontinued. Sepsis secondary to pneumonia, most likely community-acquired Left chest empyema based on pleural fluid analysis Decompensated liver cirrhosis 2/2 chronic hepatitis-C, Child-Aguayo Class C: Awaiting transferred to [place]. Transaminitis: Escalating. Might benefit from steroids. We will start methylprednisolone 40 mg IV Q 12 hours. Encephalopathy: Continue lactulose and rifaximin. Active hepatitis-C and possible hepatitis-B as well Possible Portal vein thrombosis on ultrasound: On Lovenox 80 mg subcutaneously q.day. Portacaval, retroperitoneal lymphadenopathy - possible inflammatory/neoplasm Possible neoplastic process ongoing Extensive left side pleural effusion Acute kidney injury, possibly due to vasomotor nephropathy: BUN creatinine 103/2.52. Nephrology consulted and following. Methamphetamine use disorder Moderate malnutrition Type 2 diabetes mellitus: Serum glucose control target 140-180 mg/dL Hypertension - well-controlled Malnutrition: NG tube placed and currently on vital AF 1.2 at 60 mL/hour. Agitation: He is calm on Precedex 1.5 mcg/kg per hour and p.r.n. Valium. We need to try to wean off Precedex and continue with p.r.n. Valium. Code Status: Full code DVT prophylaxis: Enoxaparin Analgesia/sedation: Morphine/hydrocodone/oxycodone Line/tube: PIV GI prophylaxis: Pantoprazole Nutrition: Carb controlled diet Prognosis: Guarded Disposition: Continue medical treatment. Patient needs to be transferred for a higher level of care facility. Overall prognosis: Guarded Discussion: The patient has suffered further deterioration i.e. worsening respiratory status and remains on a pressor and mentation is not improved. In addition to [place] [id number] suggesting metastatic liver cancer and therefore a poor candidate for hepatic transplantation. I talked to the java solutions architect at [facility] who also she had these sentiments. His case is terminal and I have concurred with the primary service, Dr Lomeli that this case is consistent with futility of care and therefore decided that the patient be do not resuscitate with comfort care. Critical care time in excess of 35 minutes. Expected Outcome/Goals Expected Outcomes/Goals: Meet minimum 75% estimated protein and energy needs with diet advancement, TF tolerance, wt maintenance, bowel regularity, skin integrity, BG 80-180 mg/dL MICHELLE PETERSEN MD May 01, 2025 17:46
--- NOTE | 2025-05-01 17:55 | PROGRESS NOTE- Residence ---
Progress Note - Resident Providers to CC Resident Creating Document: EMILEE MASON RES ~ Antibiotic Timeout Antibiotic Ordered?: Yes Subjective The patient's condition continues to decline. Neurologically, he is not following commands and remains moaning and groaning, with worsening encephalopathy. His kidney function is deteriorating further, and his respiratory status has worsened; he remains on vasopressor support with no improvement. Alpha fetoprotein is elevated to >9000, highly suggestive of metastatic liver cancer. He is not a candidate for hepatic transplantation. The ICU team [place] with [place] [facility] agreed the prognosis is terminal. In the light of this, the decision was made to change code status to DNR. Objective Vital Signs Date Time Temp Pulse Resp B/P (MAP) Pulse Ox O2 Delivery O2 Flow Rate FiO2 05/01/25 17:46 20 05/01/25 17:31 93 75 05/01/25 17:29 119 05/01/25 17:00 122/68 (86) Non-Rebreather 15.0 05/01/25 16:00 100.0 General: Somnolent, obtunded, unable to communicate HEENT: Conjunctiva pale, dry mucous membrane Neck: Supple without masses and tenderness. Resp: Unlabored. Lungs clear to auscultation bilaterally. Heart: Regular Rate and rhythm, normal S1 and S2 without murmur, rub or gallop. Abdomen: Slightly distended, bowel sounds present no rigidity Extremities: No cyanosis,clubbing or edema. Skin: pale, yellowish, and dry Result Diagram: 05/01/25 0435 05/01/25 1345 Coagulation Studies Laboratory Tests Test 04/27/25 04:24 Prothrombin Time 18.5 SECONDS (9.0-12.0) H INR International Normalized Ratio 1.9 INR Activated Partial Thromboplast Time 44 SECONDS (22-32) H Coagulation Comments Advance Care Planning Advanced Care plannin - 30 Minutes Assessment Assessment 64-year-old male patient initially admitted for painless jaundice, found to have portal vein thrombosis and treated with enoxaparin. During hospitalization the patient developed confusion, cough and respiratory distress, chest x-ray showed extensive left side effusion. Plan Plan Haemophilus parainfluenzae sepsis, Resolving Source; 2/2 community-acquired pneumonia; left sided empyema Gram-negative manny sepsis, sensitivity still pending On cefepime Levofloxacin and metronidazole discontinued today Acute decompensated liver cirrhosis 2/2 chronic hepatitis-C, Child-Aguayo Class C Acute hepatic encephalopathy Metastatic liver cancer is highly likely presented with jaundice - 4 days prior to admission Transaminitis; Escalating Active hepatitis-C and possible hepatitis-B as well Possible Portal vein thrombosis on ultrasound Portacaval, retroperitoneal lymphadenopathy - possible inflammatory/neoplasm Possible neoplastic process ongoing On lactulose and rifaximin On Lovenox 80 mg subcutaneously q.day. Managed per ICU team Awaiting transfer to [place] May 01, 2025: The patient's condition continues to decline. Neurologically, he is not following commands and remains moaning and groaning, with worsening encephalopathy. His kidney function is deteriorating further, and his respiratory status has worsened; he remains on vasopressor support with no improvement. Alpha fetoprotein is elevated to >9000, highly suggestive of metastatic liver cancer. He is not a candidate for hepatic transplantation. The ICU team consulted with hepat[place] [facility] who agreed the prognosis is terminal. In the light of this, the decision was made to change code status to DNR. Acute kidney injury, likely ATN Kidney function worsening Monitor volume status regularly Nephrology onboard Methamphetamine use disorder Sober for the last 2 months, currently living at [facility] UA screen neg for meth, positive for cannabinoids Moderate malnutrition Serum albumin 2.4 Dietitian on board; NG tube placed, tube feeding via NG tube Type 2 diabetes mellitus Serum glucose control target 140-180 mg/dL Hemoglobin A1c is 7.5 Hyperglycemia/hypoglycemia protocol in place Carb controlled diet Hypertension - hypotensive due to sepsis Hold losartan Code Status: Full code DVT prophylaxis: Enoxaparin Analgesia/sedation: Morphine/Dilaudid Line/tube: PIV GI prophylaxis: Pantoprazole Nutrition: Carb controlled diet Prognosis: Guarded Disposition: Continue medical treatment; awaiting transferred [place] [facility] Emilee Mason Internal Medicine Resident, PGY-3 Addendum pt condition deteriorated today; AFP elevated raising concern for HCC; after discussion with ICU MD and in the view of not being able to find any family, also per [facility] pt not a candiate for any treatment; based on these things decision was to switch the pt to comfort care Date of Service: May 01, 2025 Billing Provider: MYLES TREJO MD Common Visit Codes: [id number] INP/OBS CARE(HIGH) EMILEE MASON, RES May 01, 2025 17:55 MYLES TREJO MD May 01, 2025 22:00
[2025-05-01] MEDS: insulin glargine (Lantus) pen - multi-dose SQ SCH (21:52)
[2025-05-01] MEDS: amiodarone 150mg/dext, iso-os 100 ML IV ONE (22:06)
[2025-05-01] MEDS: amiodarone/D5 360MG/200ML BAG 200 ML IV SCH (22:14)
--- NOTE | 2025-05-01 22:14 | PROGRESS NOTE ---
Progress Note Dictate Providers to CC ~ Antibiotic Ordered?: Yes Objective Vitals Vital Signs Date Time Temp Pulse Resp B/P (MAP) Pulse Ox O2 Delivery O2 Flow Rate FiO2 05/01/25 21:00 98.4 135 17 84/57 (66) 96 Bi-pap/CPAP 100 05/01/25 17:00 15.0 Lab Results: 05/01/25 0435 05/01/25 1345 Coagulation Studies Laboratory Tests Test 04/27/25 04:24 Prothrombin Time 18.5 SECONDS (9.0-12.0) H INR International Normalized Ratio 1.9 INR Activated Partial Thromboplast Time 44 SECONDS (22-32) H Coagulation Comments Problem\Assessment\Plan Additional Plan TeleICU night time coverage Patient seen and evaluated using HIPPA compliant AV device Called because of worsening SOB, A fib with RVR Patient is currently hospitalized for acute encephalopathy with advanced liver cirrhosis with possible cancer. He was made DNR today due to very poor prognosis by the day team. Family still not reachable. On BIPAP with mild tachypnia A fib with RVR Continue NIMV Add Amiodarone drip Continue phnylephrine for shock Free water for hyperNa Abx for PNA Re-eval for paracenthesis in Am Patient is critically ill with high to decompensate Discussed with RN. CCT 60mins MD DONNA Dumont,LUIS DANIEL Killian MD May 01, 2025 22:14
[2025-05-02] VITALS (18 sets, daily range): BP systolic 67–143; BP diastolic 38–88; PULSE 53–153; RESP 13–30; TEMP 98.9; O2SAT 64–98
[2025-05-02 02:55] LABS: MEAN PLATELET VOLUME 9.9 FL (7.4-10.4); RED CELL DISTRIBUTION WIDTH 19.1 % (11.5-14.5)
[2025-05-02 03:12] LABS: CREATININE 3.78 MG/DL (0.60-1.10); TOTAL CARBON DIOXIDE 22.4 MMOL/L (24-32); eCRCL 19 ML/MIN; eGFR 16 ML/MIN
[2025-05-02 03:19] LABS: PHOSPHORUS 7.2 MG/DL (2.3-4.5)
[2025-05-02 05:22] LABS: CREATININE,URINE RANDOM 144.0 MG/DL; UA UREA RANDOM 492.0 MG/DL
[2025-05-02 07:09] LABS: OSMOLALITY UA 387 MOSM/K (50-1400)
[2025-05-02] MEDS: morphine 4 MG/ML inj SYRINge IV PRN (09:12)
--- NOTE | 2025-05-02 13:43 | PROGRESS NOTE- Residence ---
Progress Note - Resident Providers to CC Resident Creating Document: JOSEPH SOUZA RES ~ Antibiotic Timeout Antibiotic Ordered?: Yes Subjective The patient's condition continues to decline. Was night patient went into AFib with RVR, started on amiodarone drip. He became unresponsive, Precedex drip was discontinued. The ICU team consulted with hepatology at [facility], who agreed the prognosis is terminal. In the light of this, the decision was made to change code status to DNR with comfort care. Patient has been transferred to surgical floor. We are signing of. Objective Vital Signs Date Time Temp Pulse Resp B/P (MAP) Pulse Ox O2 Delivery O2 Flow Rate FiO2 05/02/25 12:44 20 05/02/25 12:00 143 72/46 (55) 77 Room Air 05/02/25 11:00 05/02/25 09:00 98.2 05/01/25 17:00 15.0 Result Diagram: 05/02/2521505/02/25215 General: Somnolent, unable to communicate HEENT: Conjunctiva pale, dry mucous membrane Neck: Supple without masses and tenderness. Resp: Unlabored. Lungs clear to auscultation bilaterally. Heart: Regular Rate and rhythm, normal S1 and S2 without murmur, rub or gallop. Abdomen: Slightly distended, bowel sounds present no rigidity Extremities: No cyanosis,clubbing or edema. Skin: pale, yellowish, and dry Coagulation Studies Laboratory Tests Test 04/27/25 04:24 Prothrombin Time 18.5 SECONDS (9.0-12.0) H INR International Normalized Ratio 1.9 INR Activated Partial Thromboplast Time 44 SECONDS (22-32) H Coagulation Comments Plan Plan Assessment This is a 64-year-old male patient with a history of methamphetamine use, hepatitis-C, cirrhosis, hypertension, type 2 diabetes mellitus initially admitted for painless jaundice, found to have portal vein thrombosis and treated with enoxaparin. During the admission patient developed respiratory distress secondary to left-sided pleural effusion and was transferred to ICU. The pleural effusion was tapped and about 800 cc of fluid was removed. Blood cultures positive for Haemophilus influenzae. He has a acute decompensated liver cirrhosis secondary to hepatitis-C. Also has a very high AFP with possible liver cancer. Patient had LUKE which was likely prerenal. He was managed with free water and IV fluids. ICU team has consulted hepatology at [facility] who agree with very poor prognosis considering very high AFP. Code status changed to DNR with comfort care. Patient has been transferred to surgical floor. Plan Comfort care Joseph Souza M.D PGY2 Nephrology Resident Date of Service: May 02, 2025 Billing Provider: ISABELLE MCINTOSH III, PRAVAHIKA, RES May 02, 2025 13:43
--- NOTE | 2025-05-02 18:26 | PROGRESS NOTE- Residence ---
Progress Note - Resident Providers to CC Resident Creating Document: AIDA MASON RES ~ Antibiotic Timeout Antibiotic Ordered?: No Subjective The patient was transition to comfort care and transferred to the [facility] surge unit. I was called by the nurse said the family wish to discuss the patient's condition. I met with the patient's sister, Patt (retired nurse) , along with other family members, a review of the hospital course to date, including the initial plan for transferred to [facility] in [place]. However, given the patient's clinical deterioration, underlying metastatic liver cancer, and worsening kidney and liver function, the team determined that further aggressive management would be futile. The decision was made to transition the patient to comfort focused measures. Patt expressed understanding of the situation and agreed with the plan. Her only request was that the patient remain on supplemental oxygen until his son arrives from [place] to say goodbye. Another local son has not yet been reached. The family's goal is to allow both says the opportunity to be present before the withdrawal of supportive measures. Objective Vital Signs Date Time Temp Pulse Resp B/P (MAP) Pulse Ox O2 Delivery O2 Flow Rate FiO2 05/02/25 14:00 24 Room Air 05/02/25 14:00 132 67/44 (52) 80 05/02/25 11:00 05/02/25 09:00 98.2 05/01/25 17:00 15.0 General: Somnolent, obtunded, unable to communicate. Unable to communicate. Gasping HEENT: Conjunctiva pale, dry mucous membrane Neck: Supple without masses and tenderness. Resp: Labored breathing, gasping Heart: Regular Rate and rhythm, normal S1 and S2 without murmur, rub or gallop. Abdomen: Slightly distended, bowel sounds present no rigidity Extremities: No cyanosis,clubbing or edema. Skin: pale, yellowish, and dry Result Diagram: 05/02/25 0216 05/02/25 0216 Coagulation Studies Laboratory Tests Test 04/27/25 04:24 Prothrombin Time 18.5 SECONDS (9.0-12.0) H INR International Normalized Ratio 1.9 INR Activated Partial Thromboplast Time 44 SECONDS (22-32) H Coagulation Comments Advance Care Planning Advanced Care planning: Add on additional 30 min (45 min) Assessment Assessment Patient is transitioned to comfort-focused measures. Family wishes to maintain supplemental oxygen until both sounds are able to see the patient and said their goodbyes. All other disease directed and life prolonging interventions are withdrawn. Plan: 1. Withdrawal of supportive interventions 2. Continues comfort measures 3. Family support 4. Disposition; patient to remain in med surge unit under comfort care orders Aida Mason Internal Medicine Resident, PGY-3 Date of Service: May 02, 2025 Billing Provider: MYLES TREJO MD Common Visit Codes: [id number] INP/OBS CARE(HIGH) AIDA MASON, RES May 02, 2025 18:26 MYLES TREJO MD May 03, 2025 09:27
--- NOTE | 2025-05-03 14:01 | DISCHARGE SUMMARY-Residence ---
Discharge Summary Providers to CC Resident Creating Document: EMILEE MASTERS RES ~ Discharge Summary Admission Diagnosis: Portal vein thrombosis Hospital Course DATE OF ADMISSION: DATE OF DISCHARGE: Discharge Diagnosis\Comment: Haemophilus parainfluenzae sepsis, POA Community-acquired pneumonia; left sided empyema Acute decompensated liver cirrhosis 2/2 chronic hepatitis-C, Child-Aguayo Class C Acute hepatic encephalopathy Metastatic liver cancer is highly likely Possible Portal vein thrombosis Portacaval, retroperitoneal lymphadenopathy - possible inflammatory/neoplasm Acute kidney injury, likely ATN Methamphetamine use disorder Moderate malnutrition Type 2 diabetes mellitus Hypertension Operations\Procedures: Right IJV central line placement Left Thoracentesis Consultants: Dr. Jovani Yañez [facility] Dr. Julisa Gaines Complications: none Condition on DC: Discharge Summary: The patient was 64-year-old male was admitted with painless jaundice, subsequently diagnosed with Haemophilus parainfluenza sepsis. His course was complicated by acute decompensated liver cirrhosis, secondary to chronic hepatitis-C, child puff class C, and acute hepatic insufficiency. Imaging and lab findings suggested metastatic liver cancer, with an alpha fetoprotein level more than 9000. The patient was initially considered for transferred to [facility] for possible advanced management. However, given his poor overall prognosis and advanced liver disease, he was not deemed a candidate for liver transplantation. His condition progressively worsened; he became nonresponsive, not following commands, with a agitation and groaning. Renal function was worsening, progressive respiratory failure failure , and persistently required vasopressor support without clinical improvement. Given the grave prognosis, palliative approach was pursued after multidisciplinary discussion, including improved from [facility] hepatology. The patient was transition to comfort care measure. He was downgraded from the ICU to medical floor for end of life care. Despite supportive management, the patient's condition continued to deteriorate, and he peacefully on the medical floor. *Problems/Diagnosis: (1) LUKE (acute kidney injury) (2) Hyperkalemia (3) Cirrhosis of liver Status: Acute Total Time Spent on D/C: > 30 Minutes Date of Service: May 03, 2025 Billing Provider: MYLES TREJO MD, SHAMS, PLACIDO May 03, 2025 13:53
== END 2025-05-03 05:19 | DRG 871 ==
LOC: ER 11:38 → ED HOLD 17:46 → SUR 3N 22:44 → PCU 3S 04-25 11:42 → CICU 2S 04-25 14:10 → SUR 3N 05-02 13:33
PROVIDERS: ADMIT Internal Medicine; ATTEND Internal Medicine
PROC: 0W9B30Z Drainage of Left Pleural Cavity with Drainage Device, Percutaneous Approach (ICD-10-PCS; principal; 2025-04-25)
PROC: 5A0945A Assistance with Respiratory Ventilation, 24-96 Consecutive Hours, High Flow/Velocity Cannula (ICD-10-PCS; 2025-04-25)
PROC: 02HV33Z Insertion of Infusion Device into Superior Vena Cava, Percutaneous Approach (ICD-10-PCS; 2025-04-27)
PROC: B548ZZA Ultrasonography of Superior Vena Cava, Guidance (ICD-10-PCS; 2025-04-27)
PROC: 5A09357 Assistance with Respiratory Ventilation, Less than 24 Consecutive Hours, Continuous Positive Airway Pressure (ICD-10-PCS; 2025-05-01)
PROC: 5A09357 Assistance with Respiratory Ventilation, Less than 24 Consecutive Hours, Continuous Positive Airway Pressure (ICD-10-PCS; 2025-05-02)
DX: A41.59 Other Gram-negative sepsis (principal); I81 Portal vein thrombosis; J18.9 Pneumonia, unspecified organism; N17.0 Acute kidney failure with tubular necrosis; J86.9 Pyothorax without fistula; I87.1 Compression of vein; E44.0 Moderate protein-calorie malnutrition; R18.8 Other ascites; J90 Pleural effusion, not elsewhere classified; C78.7 Secondary malignant neoplasm of liver and intrahepatic bile duct; Z66 Do not resuscitate; K72.90 Hepatic failure, unspecified without coma; K74.60 Unspecified cirrhosis of liver; R16.0 Hepatomegaly, not elsewhere classified; B19.20 Unspecified viral hepatitis C without hepatic coma; I48.91 Unspecified atrial fibrillation; F17.210 Nicotine dependence, cigarettes, uncomplicated; I10 Essential (primary) hypertension; F15.10 Other stimulant abuse, uncomplicated; E87.5 Hyperkalemia; Z88.0 Allergy status to penicillin; Z79.84 Long term (current) use of oral hypoglycemic drugs; Z79.899 Other long term (current) drug therapy; Z68.25 Body mass index [BMI] 25.0-25.9, adult; R59.0 Localized enlarged lymph nodes; K76.82 Hepatic encephalopathy; C80.1 Malignant (primary) neoplasm, unspecified; B96.3 Hemophilus influenzae [H. influenzae] as the cause of diseases classified elsewhere
CPT/HCPCS: 32555; 36415; 36600; 71045; 71046; 74160; 74176; 76700; 80048; 80053; 80076; 80305; 81001; 82103; 82140; 82150; 82570; 82607; 82728; 82803; 82945; 82948; 82977; 83036; 83540; 83550; 83605; 83615; 83690; 83735; 83880; 83935; 83986; 84100; 84133; 84134; 84145; 84157; 84300; 84484; 84540; 85007; 85018; 85025; 85610; 85651; 85730; 86703; 86704; 86803; 87040; 87070; 87077; 87081; 87185; 87207; 87340; 87522; 89051; 93306; 94660; 94664; 94760; 96372; 96374; 96375; 99285; A4314; A4615; A4620; A4624; A5200; A6212; A6213; A6222; A6258; A6446; A6449; C1729; C1751; G0378; J0282; J0692; J1171; J1630; J1650; J1815; J1938; J1956; J2270; J2371; J2470; J2919; J3360; J3480; J3490; J7030; J7040; J7050; J7120; P9045; P9047; Q9967